=== PATIENT | female | born 1945 | race Caucasian/White ===

== ENCOUNTER 2019-10-04 12:07 | Inpatient (IN) | payer MEDICARE, MEDICAID, SELFPAY ==
--- NOTE | ~2019-10-04 | XR_ITS ---
EXAMINATION: XR knee RT min 4V DATE: 10/04/2019 14:03 INDICATION: Right knee pain TECHNIQUE: Anteroposterior, oblique and crosstable lateral views of the right knee were obtained COMPARISON: None. FINDINGS: Alignment is normal. No fracture. No joint effusion/layering lipohemarthrosis. Soft tissues are unre markable. IMPRESSION: 1. No right knee joint effusion or osseous abnormality. Reviewed, dictated and finalized at location A. ECTOR ROUGH CASTINGS
--- NOTE | ~2019-10-04 | CT_ITS ---
EXAMINATION: CT chest wo con EXAM DATE: 10/05/2019 12:21 INDICATION: Abnormal chest x-ray. TECHNIQUE: Spiral CT of the chest without contrast. Axial, coronal and sagittal images were reviewe d. Coronal maximum intensity pixel images of chest reviewed. The dose-length product (DLP) for this examination was 1188.91 mGy-cm. The exposure was tailored according to patient size (auto mA exposu re control), and iterative reconstruction (ASIR) was used as additional dose reduction technique. Cor relation is made to chest x-ray from 10/04/2019. FINDINGS: There is moderate emphysema. Right upper lobe anterior segmental collapse extending to the pleura, with soft tissue density appearing to extend through the thoracic wall, involving the pector celestina musculature. This is causing ipsilateral mediastinal shift. There is chronic appearing periostea l reaction along right third rib anteriorly, and there is a fracture of the right fourth rib, adjacen t to the airspace disease. Differential diagnosis includes malignancy, sequela from prior trauma with scarring, scar tissue. Please clinically correlate. Consider PET/CT for further evaluation. Small region of lingular atelectasis. There are no pleural or pericardial effusions. Tracheobronchi al tree is patent. There is no mediastinal, hilar or axillary lymphadenopathy. There is no pneumo thorax. Heart normal in size. There is moderate coronary arterial calcification, arterial scleros is. Upper abdomen is unremarkable. There is moderate thoracic spondylosis without osteoblastic or osteolytic lesions identified. IMPRESSION: 1. Wedge-shaped right upper lobe anterior segmental collapse, volume loss with soft tissue extending through the right anterior thoracic wall, differential diagnosis including malignancy, fibrous tumor , atelectasis and scar tissue. Recommend PET/CT for further evaluation. 2. Moderate emphysema. Reviewed, dictated and finalized at location A. BALER IMPRESSION: 1. Wedge-shaped right upper lobe anterior segmental collapse, volume loss with soft tissue extending through the right anterior thoracic wall, differential d iagnosis including malignancy, fibrous tumor, atelectasis and scar tissue. Tu mmend PET/CT for further evaluation. 2. Moderate emphysema.
--- NOTE | ~2019-10-04 | XR_ITS ---
EXAMINATION: XR chest 2V DATE: 10/04/2019 14:03 INDICATION: COPD. Weakness. TECHNIQUE: frontal and lateral views of the chest were obtained. COMPARISON: None FINDINGS: Approximately mild elevation of the left hemidiaphragm. Asymmetric apparent lucency at the left mid a nd upper lung zone which could be related to given history of COPD, sequela of prior partial pneumone ctomy given the volume loss in the left hemithorax with elevation of the left hemidiaphragm and/or ar tifact of what appears be a breast implant projecting over the contralateral right lung. 2-[address] triangular nodule with spiculated margins projecting over the right midlung zone on the frontal p rojection. On the lateral projection this has a more bandlike appearance which would favor discoid at electasis/scarring. Mild atelectasis/scarring at the lingula along side a small left paracardial fat pad. No pleural effusion or pneumothorax. Heart size is normal. Atherosclerotic aorta. Thoracic kypho sis, mild dextrocurvature and moderate spondylosis. IMPRESSION: 1. Bandlike opacity with more spiculated nodular appearance on the frontal projection most likely ate lectasis/scarring but differential would include malignancy and would recommend contrast-enhanced radha st CT for further evaluation. Reviewed, dictated and finalized at location A. DENTIAL SALES REPRESENTATIVE IMPRESSION: 1. Bandlike opacity with more spiculated nodular appearance on the frontal proj ection most likely atelectasis/scarring but differential would include malignan cy and would recommend contrast-enhanced chest CT for further evaluation.
--- NOTE | ~2019-10-04 | CT_ITS ---
EXAMINATION: CT brain wo con DATE: 10/04/2019 13:48 INDICATION: Right leg weakness. Fall. TECHNIQUE: Computed tomography (CT) of the head was performed without intravenous contrast. The mA wa s adjusted according to patient size. Iterative reconstruction technique was employed. The dose-lengt h product was 605.33 mGy-cm. COMPARISON: None FINDINGS: There are scattered areas of low attenuation in the cerebral white matter. There is an embo lization coil mass in the suprasellar cistern. There are old infarcts in the right parietal and occip ital lobes. There are scattered areas of low attenuation in the cerebral white matter. The orbits are normal. The paranasal sinuses are clear. The mastoid air cells are normal. IMPRESSION: 1. Old infarcts in the right parietal and occipital lobes. 2. Moderate nonspecific cerebral white matter disease, which likely represents chronic small vessel i schemic disease. Reviewed, dictated and finalized at location B. TORIAL SUPERVISOR IMPRESSION: 1. Old infarcts in the right parietal and occipital lobes. 2. Moderate nonspecific cerebral white matter disease, which likely represents chronic small vessel ischemic disease.
--- NOTE | ~2019-10-04 | XR_ITS ---
EXAMINATION: XR hip RT 2V w AP pelvis DATE: 10/04/2019 14:03 INDICATION: Generalized right hip pain post fall TECHNIQUE: Anteroposterior view of the pelvis and anteroposterior, frog leg and cross-table lateral v iews of the right hip were obtained. COMPARISON: None. FINDINGS: Bone alignment is normal. No fracture or suspected avascular necrosis. Bilateral hip joint spaces are normal. Mild bilateral sacroiliac osteoarthritis. Scattered atherosclerotic calcination cases and fi bulas. Surgical clips in the pelvis suggestive of bilateral pelvic lymph node dissections. IMPRESSION: 1. No acute osseous abnormality. Reviewed, dictated and finalized at location A. LE MANAGER
[2019-10-04 12:09] VITALS: BP 137/115; PULSE 86; RESP 20; TEMP 36.5; O2SAT 98
[2019-10-04 12:15] VITALS: PULSE 86
--- NOTE | 2019-10-04 12:54 | ECG_ITS ---
Measurements Intervals [place] Rate: 85 P: 40 AR: 211 QRS: 47 QRSD: 88 T: 34 QT: 341 QTc: 406 Interpretive Statements SINUS RHYTHM WITH FIRST DEGREE AV BLOCK ABNORMAL ECG Electronically Signed On 10-04-2019 12:58:53 CERTIFIED MEDICATION AIDE by Brandt Johnson D.O.
--- NOTE | 2019-10-04 13:12 | ED.WEAKNESS ---
HPI - Weakness General Chief complaint: Weakness Stated complaint: WEAKNESS Time Seen by Provider: 10/04/19 12:59 Source: patient and family Mode of arrival: EMS Limitations: no limitations History of Present Illness HPI Narrative: The pt is a 74 y/o female who presents to the ED, via EMS, c/o RLE weakness. The pt presents from assisted living. She notes that she walks without a walker typically, and has been walking over the past couple of days. Pt states that her RLE is chronically weak due to a past CVA. She states that for the past few months, her RLE weakness has gradually worsened. Her and her family state that she has had frequent falls recently, including one yesterday and today. Pt's family states that she fell today while trying to transfer to her couch from her wheelchair. The pt reports chronic SOB with exertion, chronic RLE pain, VELOZ, and some nausea per pt's family. She denies LLE pain, CP, cough, fever, vomiting, diarrhea, loss of appetite, ABD pain, and head injury. She states that she has a PMHx of COPD, and notes that she is on oxygen for sleep apnea. Her family states that her saturation runs between 89 and 91%. Pt notes that she last saw her PCP one week ago; she states that her new PCP is Mary Baker NP. She also notes that she saw Dr. Campuzano two days ago. Pt has a Fuller catheter, and notes that it was changed earlier this week. Complaint: focal weakness (RLE) Onset (ago): year(s) (Chronic, but has worsened gradually over the past 3 months) Duration: constant and progressively worsening Location: RLE Associated symptoms: headaches, nausea/vomiting (Nausea per pt's family), shortness of breath (Chronic, with exertion) and other (RLE pain (Chronic), frequent falls) Related Data Home Medications Medication Instructions Recorded Confirmed acetaminophen 650 mg PO Q6H PRN 10/04/19 10/04/19 albuterol sulfate 2 puff INHALATION QID PRN 10/04/19 10/04/19 albuterol sulfate 5 mg INHALATION Q6H PRN 10/04/19 10/04/19 amlodipine 2.5 mg PO DAILY 10/04/19 10/04/19 aspirin 325 mg PO DAILY 10/04/19 10/04/19 budesonide-formoterol 2 puff INHALATION Q12H 10/04/19 10/04/19 buspirone 10 mg PO HS 10/04/19 10/04/19 docusate sodium [Colace] 100 mg PO BID 10/04/19 10/04/19 furosemide [Lasix] 20 mg PO BID 10/04/19 10/04/19 latanoprost 1 drp OPHTHALMIC (EYE) QPM 10/04/19 10/04/19 melatonin 10 mg PO HS 10/04/19 10/04/19 metoprolol tartrate 25 mg PO BID 10/04/19 10/04/19 polyethylene glycol 3350 [Miralax] 17 g PO DAILY 10/04/19 10/04/19 potassium chloride 40 meq PO DAILY 10/04/19 10/04/19 rosuvastatin 20 mg PO DAILY 10/04/19 10/04/19 venlafaxine 150 mg PO DAILY 10/04/19 10/04/19 Allergies Allergy/AdvReac Type Severity Reaction Status Date / Time clonidine Allergy Intermediate Dizziness Verified 10/04/19 12:25 sertraline Allergy Intermediate Unknown Verified 10/04/19 12:25 topiramate Allergy Intermediate Confusion Verified 10/04/19 12:25 lorazepam AdvReac Intermediate Confusion Verified 10/04/19 12:25 Contrast Media Allergy Severe Hives Uncoded 10/04/19 12:25 Review of Systems Review of Systems: All systems reviewed & are unremarkable except as noted in HPI and below Constitutional: Constitutional: Denies fever(s) and Denies poor appetite (Loss of appetite) Cardiovascular: Cardiovascular: Denies chest pain Respiratory: Respiratory: Denies cough and Reports dyspnea (Chronic, with exertion) Gastrointestinal: Gastrointestinal: Denies abdominal pain, Denies diarrhea, Reports nausea (Per pt's family) and Denies vomiting Musculoskeletal: Musculoskeletal: Reports other (Reports: Chronic RLE pain; Denies: LLE pain) Neurologic: Reports frequent falls, Reports headache(s), Reports weakness (RLE, chronic but worsening over last 3 months) and Denies other (Head injury) [facility] Past Medical History Medical History (Updated 10/05/19 @ 00:28 by Susana Stovall MD) Adenocarcinoma Ovary, breast Anxiety Arthritis Asthma Brain aneurysm
--- NOTE | 2019-10-04 13:36 | PCRCNOTE ---
ABG ORDERED; PT. IS IN C.T. AND XRAY. CHARGE NURSE TO CALL WHEN PT. RETURNS SO ABG CAN BE DRAWN
[2019-10-04 14:28] LABS: Alveolar/Arterial O2 Gradient 35.1 mmHg; Base Excess ABG 4.3 mEq/l (+/-2.0); Carboxyhemoglobin 1.1 % THb (0-2.0); Fractional Inspired Oxygen 21 %; HCO3 ABG 29.8 mEq/l (22.0-26.0); Methemoglobin ABG 0.2 %THb (0-1.5); Oxygen Content ABG 17.3 %vol (16.0-22.0); Oxygen Saturation ABG 89.9 % (95.0-100.0); Oxyhemoglobin 89.1 % THb (90.0-100.0); PCO2 ABG 47.9 mmHg (35.0-45.0); PO2 ABG 57.3 mmHg (80.0-100.0); PO2 FiO2 Ratio Arterial Blood 2.73 %; Reduced Hemoglobin 9.6 %THb (0-5.0); Site Drawn LEFT BRACHIAL; Total Hemoglobin 13.8 g/dL (12.0-18.0); pH ABG 7.412 (7.350-7.450)
[2019-10-04 14:29] LABS: Device ROOM AIR
[2019-10-04 15:22] LABS: Alanine Aminotransferase 14 U/L (4-35); Alkaline Phosphatase 87 U/L (38-126); Aspartate Amino Transferase 21 U/L (14-36); Bilirubin,Total 0.4 mg/dL (0.2-1.3); Blood Urea Nitrogen 23 mg/dL (7-17); Calcium 8.8 mg/dL (8.4-10.2); Carbon Dioxide 31 mmol/L (22-30); Chloride 98 mmol/L (98-107); Estimated Glomerular Filt Rate > 60; Glucose 115 mg/dL (65-105); Magnesium 2.4 mg/dL (1.6-2.3); Potassium 4.2 mmol/L (3.4-5.0); Sodium 139 mmol/L (137-145)
[2019-10-04 15:34] LABS: Troponin I < 0.012 ng/mL (0.000-0.034)
[2019-10-04 15:55] LABS: Basophils Absolute Auto 0.1 K/mm3 (0.0-0.1); Basophils Percent Auto 0.8 % (0.2-1.2); Eosinophils Absolute Auto 0.2 K/mm3 (0-0.3); Eosinophils Percent Auto 1.7 % (0-4.4); Hematocrit 46.2 % (37.0-47.0); Hemoglobin 14.3 g/dL (12.0-15.0); Immature Granulocyte Absolute 0.02 K/mm3 (0.00-0.031); Immature Granulocyte Percent A 0.2 % (0-0.5); Lymphocytes Absolute Auto 1.42 K/mm3 (0.9-3.2); Lymphocytes Percent Auto 15.5 % (18.3-44.2); Mean Corpuscular Hemoglobin 28.3 pg (26-34); Mean Corpuscular Volume 91.3 fl (80-100); Mean Platelet Volume 9.5 fl (7.4-10.4); Monocytes Absolute Auto 0.8 K/mm3 (0.1-0.6); Neutrophils Absolute Auto 6.7 K/mm3 (1.3-6.7); Neutrophils Percent Auto 72.8 % (45.5-73.1); Platelet Count Result 218 k/mm3 (150-375); Red Blood Count 5.06 M/mm3 (4.2-5.4); White Blood Count 9.2 K/mm3 (4.5-10.0)
[2019-10-04 16:22] LABS: Add Urine Microscopic? YES; Appearance Urine Cloudy (Clear); Bacteria Urine Trace /hpf; Bilirubin Urine Negative (Negative); Blood Urine Negative (Negative); Color Urine Yellow (Yellow); Glucose Urine UA Negative (Negative); Ketones Urine Negative (Negative); Leukocyte Esterase Ur Negative LEU/UL (Negative); Mucus Urine Few /lpf; Nitrate Urine Negative (Negative); Protein Urine Negative (Negative); Specific Grav Ur 1.016 (1.001-1.035); Squamous Epithelial Cell Urine Rare /hpf (Few); Urobilinogen Urine Negative mg/dL (<2.0); WBC Urine 0-3 /hpf
[2019-10-04 17:13] LABS: Partial Thromboplastin Time 25.9 SECONDS (22.3-36.8); Prothrombin Time 12.6 Seconds (11.1-14.7)
[2019-10-04 17:48] VITALS: BP 137/76; PULSE 92; RESP 20; O2SAT 93
--- NOTE | 2019-10-04 17:58 | PC.NURSE ---
This patient, Kimberlee Bullock, was admitted to 3 [facility] Surg Room 324-01 on 10/04/2019 @ 1800. Patient/family oriented to hospital policies and general routines including ID bracelet, bed and alarms, visiting hours, pain management, procedures, bathroom and other care routines, personal items, smoking policy, room service/diet, and visiting hours. Valuables list has been completed. Information on how to activate the Rapid Response Team has been discussed. Patient/Family are encouraged to report perceived risks to care and to ask questions if they do not understand what they are told or what they should do.
[2019-10-04 18:58] VITALS: BP 139/62; PULSE 88; RESP 16; TEMP 36.7; O2SAT 90
[2019-10-04 21:35] VITALS: BP 140/72; PULSE 100; RESP 18; TEMP 36.4; O2SAT 99
--- NOTE | 2019-10-04 22:15 | PC.NURSE ---
Patient has chronic jackson for the past few months. Asked patient if she knew when it was changed last, and she thinks that it was earlier this week, but she cannot recall. There is no sticker or date anywhere on the device, or recorded in the chart. I called the assisted living facility at [phone], and was told that they are not sure when it was changed and to call back when a nurse is available to speak to. I have put an approximate date and time down for documentation of the jackson, and will change it as more information becomes available.
[2019-10-05] VITALS (13 sets, daily range): BP systolic 122–141; BP diastolic 58–72; PULSE 73–111; RESP 16; TEMP 36.3–36.6; O2SAT 86–100
[2019-10-05] MEDS: ACETAMINOPHEN 325 MG TABLET 650 MG PO (03:41)
[2019-10-05] MEDS: ASPIRIN 325 MG TABLET PO (08:33)
[2019-10-05] MEDS: AMLODIPINE BESYLATE 2.5 MG TABLET PO (08:33)
[2019-10-05] MEDS: VENLAFAXINE HCL XR 75 MG CAP.ER.24H 150 MG PO (08:33)
[2019-10-05] MEDS: DOCUSATE SODIUM 100 MG CAPSULE PO ×2 (08:33→17:33)
[2019-10-05] MEDS: polyethylene glycoL 3350 17 GM POWD.PACK PO (08:33)
[2019-10-05] MEDS: METOPROLOL TARTRATE 25 MG TABLET PO ×2 (08:34→20:48)
[2019-10-05 10:10] LABS: Blood Urea Nitrogen 21 mg/dL (7-17); Calcium 8.7 mg/dL (8.4-10.2); Carbon Dioxide 31 mmol/L (22-30); Chloride 96 mmol/L (98-107); Estimated Glomerular Filt Rate > 60; Glucose 181 mg/dL (65-105); Potassium 3.8 mmol/L (3.4-5.0); Sodium 135 mmol/L (137-145)
[2019-10-05 10:11] LABS: Hematocrit 40.1 % (37.0-47.0); Hemoglobin 12.2 g/dL (12.0-15.0); Mean Corpuscular HGB Conc 30.4 g/dl (32-36); Mean Corpuscular Hemoglobin 27.9 pg (26-34); Mean Corpuscular Volume 91.8 fl (80-100); Mean Platelet Volume 9.3 fl (7.4-10.4); Platelet Count Result 198 k/mm3 (150-375); Red Blood Count 4.37 M/mm3 (4.2-5.4); Red Cell Distribution Width 14.1 % (11.5-14.5); White Blood Count 7.4 K/mm3 (4.5-10.0)
--- NOTE | 2019-10-05 16:57 | PM.IMPN ---
Progress Note: A&P Assessment and Plan (1) Weakness: Code(s): R53.1 - Weakness Status: Acute Assessment and Plan: 10/05/19 16:57 patient is 74-year-old female with history of CVA in the past resulting in the right upper and lower extremity weakness and patient had a stroke several years ago patient states the on and off right-sided weakness gets worse when she is tired fatigue and specially when she have a bladder infection, patient had been falling recently due to her weakness in the right lower extremities and patient was brought to emergency department for further evaluation, patient suspect the patient her symptoms due to the bladder infection she is having, however urine collected in the emergency department does not show any sign of pyuria, see denies any abdominal pain nausea or vomiting fever or chills her white counts are normal, chest x-ray showed possible scarring or malignancy, a CT scan of the chest is ordered without contrast will follow-up, patient states see has a scarring on her chest which appears on the x-ray as malignancy. (2) Frequent falls: Code(s): R29.6 - Repeated falls Status: Acute Assessment and Plan: No patient clinically sounds is benign will have PT OT evaluate the patient Subjective Date/time seen: 10/05/19 16:57 patient is 74-year-old female with history of CVA in the past resulting in the right upper and lower extremity weakness and patient had a stroke several years ago patient states the on and off right-sided weakness gets worse when she is tired fatigue and specially when she have a bladder infection, patient had been falling recently due to her weakness in the right lower extremities and patient was brought to emergency department for further evaluation, patient suspect the patient her symptoms due to the bladder infection she is having, however urine collected in the emergency department does not show any sign of pyuria, see denies any abdominal pain nausea or vomiting fever or chills her white counts are normal, chest x-ray showed possible scarring or malignancy, a CT scan of the chest is ordered without contrast will follow-up, patient states see has a scarring on her chest which appears on the x-ray as malignancy. Review of Systems Review of Systems: All systems reviewed & are unremarkable except as noted in HPI and below Exam Narrative: Exam Narrative: Patient elderly moderately obese Const: General: comfortable and no acute distress HENMT: General nose exam: Normal nares present Mouth: Yes moist mucous membranes Eyes: General: appearance normal, both eyes and all related structures Sclera: sclerae normal Neck: Neck: supple Resp: Effort & Inspection: normal respiratory effort Auscultation: clear to auscultation bilaterally Cardio: Rate: regular rate Rhythm: regular rhythm GI: Auscultation: normal bowel sounds Skin: General skin exam: normal color and no rashes or lesions noted Neuro: Speech: normal speech Sensory Exam: normal sensation Other: Bilateral lower and upper extremities power and strength a symmetrical and 5/5 age dependent Extrem: General: normal to inspection Psych: Affect: Anxious affect present Objective Data Vital Signs Vital Signs: Vital Signs - 24 hr 10/04/19 17:48 10/04/19 18:58 10/04/19 21:35 Temperature 98.1 F 97.6 F Pulse Rate 92 88 100 Respiratory Rate 20 16 18 Blood Pressure 137/76 139/62 140/72 Pulse Oximetry 93 90 99 10/05/19 00:00 10/05/19 04:05 10/05/19 06:00 Temperature 97.4 F L Pulse Rate 111 H 97 95 Respiratory Rate 16 Blood Pressure 141/72 H Pulse Oximetry 100 10/05/19 08:00 10/05/19 08:34 10/05/19 12:00 Temperature Pulse Rate 92 99 73 Respiratory Rate Blood Pressure Pulse Oximetry 10/05/19 14:00 10/05/19 16:00 Temperature 97.8 F Pulse Rate 84 91 Respiratory Rate 16 Blood Pressure 128/58 L Pulse Oximetry 90 Intake/Output Intake/Output: Intake & O
[2019-10-05] MEDS: LATANOPROST 0.005% OP SOLN 2.5 ML BTL 1 DROP EACH EYE (17:33)
[2019-10-05] MEDS: busPIRone HCL 10 MG TABLET PO (20:48)
[2019-10-05] MEDS: MELATONIN 5 MG TABLET 10 MG PO (20:49)
[2019-10-06] VITALS (13 sets, daily range): BP systolic 122–148; BP diastolic 58–82; PULSE 78–93; RESP 16–18; TEMP 36.2–36.9; O2SAT 93–97
[2019-10-06 06:15] LABS: Hematocrit 38.5 % (37.0-47.0); Hemoglobin 11.7 g/dL (12.0-15.0); Mean Corpuscular HGB Conc 30.4 g/dl (32-36); Mean Corpuscular Hemoglobin 27.9 pg (26-34); Mean Corpuscular Volume 91.7 fl (80-100); Mean Platelet Volume 9.3 fl (7.4-10.4); Platelet Count Result 197 k/mm3 (150-375); Red Cell Distribution Width 14.1 % (11.5-14.5); White Blood Count 6.3 K/mm3 (4.5-10.0)
[2019-10-06 06:43] LABS: Blood Urea Nitrogen 20 mg/dL (7-17); Calcium 8.8 mg/dL (8.4-10.2); Carbon Dioxide 30 mmol/L (22-30); Chloride 100 mmol/L (98-107); Estimated Glomerular Filt Rate > 60; Glucose 123 mg/dL (65-105); Sodium 136 mmol/L (137-145)
[2019-10-06] MEDS: VENLAFAXINE HCL XR 75 MG CAP.ER.24H 150 MG PO (08:38)
[2019-10-06] MEDS: AMLODIPINE BESYLATE 2.5 MG TABLET PO (08:38)
[2019-10-06] MEDS: ASPIRIN 325 MG TABLET PO (08:38)
[2019-10-06] MEDS: polyethylene glycoL 3350 17 GM POWD.PACK PO (08:38)
[2019-10-06] MEDS: DOCUSATE SODIUM 100 MG CAPSULE PO ×2 (08:38→17:17)
[2019-10-06] MEDS: METOPROLOL TARTRATE 25 MG TABLET PO ×2 (08:38→21:06)
--- NOTE | 2019-10-06 14:01 | PM.IMPN ---
Progress Note: A&P Assessment and Plan (1) Weakness: Code(s): R53.1 - Weakness Status: Acute Assessment and Plan: 10/06/19 14:01patient is 74-year-old female with history of CVA in the past resulting in the right upper and lower extremity weakness and patient had a stroke several years ago patient states the on and off right-sided weakness gets worse when she is tired fatigue and specially when she have a bladder infection, patient had been falling recently due to her weakness in the right lower extremities and patient was brought to emergency department for further evaluation, patient suspect the patient her symptoms due to the bladder infection she is having, however urine collected in the emergency department does not show any sign of pyuria, see denies any abdominal pain nausea or vomiting fever or chills her white counts are normal, chest x-ray showed possible scarring or malignancy, a CT scan of the chest is ordered without contrast will follow-up, patient states see has a scarring on her chest which appears on the x-ray as malignancy. Patient had ct scan of the chest it does appear as old scaring as patient stated, today patient stats her right lower extremity is better and she is able flex and extend and did work with the PT/OT. Patient will be re-evaluated by the PT OT patient will benefit going home with home health (2) Frequent falls: Code(s): R29.6 - Repeated falls Status: Acute Assessment and Plan: No patient clinically sounds is benign will have PT OT evaluate the patient Subjective Date/time seen: 10/06/19 14:01patient is 74-year-old female with history of CVA in the past resulting in the right upper and lower extremity weakness and patient had a stroke several years ago patient states the on and off right-sided weakness gets worse when she is tired fatigue and specially when she have a bladder infection, patient had been falling recently due to her weakness in the right lower extremities and patient was brought to emergency department for further evaluation, patient suspect the patient her symptoms due to the bladder infection she is having, however urine collected in the emergency department does not show any sign of pyuria, see denies any abdominal pain nausea or vomiting fever or chills her white counts are normal, chest x-ray showed possible scarring or malignancy, a CT scan of the chest is ordered without contrast will follow-up, patient states see has a scarring on her chest which appears on the x-ray as malignancy. Patient had ct scan of the chest it does appear as old scaring as patient stated, today patient stats her right lower extremity is better and she is able flex and extend and did work with the PT/OT. Review of Systems Review of Systems: All systems reviewed & are unremarkable except as noted in HPI and below Exam Narrative: Exam Narrative: Patient elderly moderately obese Const: General: comfortable and no acute distress HENMT: General nose exam: Normal nares present Mouth: Yes moist mucous membranes Eyes: General: appearance normal, both eyes and all related structures Sclera: sclerae normal Neck: Neck: supple Resp: Effort & Inspection: normal respiratory effort Auscultation: clear to auscultation bilaterally Cardio: Rate: regular rate Rhythm: regular rhythm GI: Auscultation: normal bowel sounds Skin: General skin exam: normal color and no rashes or lesions noted Neuro: Speech: normal speech Sensory Exam: normal sensation Other: Bilateral lower and upper extremities power and strength a symmetrical and 5/5 age dependent Extrem: General: normal to inspection Psych: Affect: Anxious affect present Objective Data Vital Signs Vital Signs: Vital Signs - 24 hr 10/05/19 16:00 10/05/19 20:00 10/05/19 20:48 Temperature Pulse Rate 91 102 H 94 Respiratory Rate Blood Pressure Pulse Oximetry 10/05/19 21:13 10/05/19 22:09 10/05/19 22:57 Mobile
[2019-10-06] MEDS: LATANOPROST 0.005% OP SOLN 2.5 ML BTL 1 DROP EACH EYE (17:17)
[2019-10-06] MEDS: MELATONIN 5 MG TABLET 10 MG PO (21:05)
[2019-10-06] MEDS: busPIRone HCL 10 MG TABLET PO (21:06)
[2019-10-07] VITALS (8 sets, daily range): BP systolic 125–138; BP diastolic 63–73; PULSE 72–94; RESP 16–18; TEMP 36.5–36.9; O2SAT 88–98
[2019-10-07] MEDS: ACETAMINOPHEN 325 MG TABLET 650 MG PO ×2 (00:06→22:01)
[2019-10-07 06:29] LABS: Hematocrit 37.1 % (37.0-47.0); Hemoglobin 11.5 g/dL (12.0-15.0); Mean Corpuscular Volume 90.3 fl (80-100); Mean Platelet Volume 9.1 fl (7.4-10.4); Platelet Count Result 198 k/mm3 (150-375); Red Blood Count 4.11 M/mm3 (4.2-5.4); White Blood Count 6.5 K/mm3 (4.5-10.0)
[2019-10-07 06:40] LABS: Blood Urea Nitrogen 23 mg/dL (7-17); Calcium 8.9 mg/dL (8.4-10.2); Carbon Dioxide 32 mmol/L (22-30); Chloride 101 mmol/L (98-107); Estimated Glomerular Filt Rate > 60; Glucose 122 mg/dL (65-105); Potassium 3.9 mmol/L (3.4-5.0); Sodium 140 mmol/L (137-145)
--- NOTE | 2019-10-07 06:48 | HP_ITS ---
DATE OF SERVICE: 10/05/2019 TIME: 0515. CHIEF COMPLAINT: Worsening weakness. HISTORY OF PRESENT ILLNESS: The patient is a pleasant 74-year-old female with a past medical history of chronic right-sided weakness, lung cancer status post radiation therapy, COPD with nighttime oxygen use, and chronic gait instability, who presented to the hospital via EMS from [facility] due to a fall due to weakness. Source of information is ER records and past medical records as well as patient report. The patient is only a fair historian. The patient usually ambulates with a walker, but has been having difficulty walking over the last couple of days. She has fallen twice in recent days. She has chronic right lower extremity weakness due to a prior CVA and intracranial aneurysm was coiled in 2006. Gradually over the last few months, her right lower extremity weakness has worsened. The patient was trying to transfer from the couch to a wheelchair on the day of admission when she fell. She denies any injury with the fall. She thinks that she is more weak due to a recent bout of flu. She denies any increased shortness of breath from baseline, but does have chronic shortness of breath with exertion. She also has chronic right lower extremity pain that is unchanged. The family had reported that the patient had been having some headache and nausea, but the patient denies any nausea at the time of my evaluation and reports that her appetite has been good. She does have intermittent episodes of diarrhea and constipation that she correlates to a history of diverticulosis. The patient also has a history of obstructive sleep apnea for which she uses nighttime oxygen, but does also use the oxygen as needed during the day. She has chronic urinary retention for which she was evaluated at [place] with urodynamic studies and was seen by Urology during hospitalization in January 2019, for which patient was to follow up with Urology locally. The plan was for the patient to have a Fuller in indefinitely as intermittent self-catheterization was unlikely with the patient. The patient's catheter is scheduled to be changed monthly and was just changed last week. She denies any fevers or chills. She does admit that she has had progressive decline in her memory over recent months, but is currently alert and oriented to person, place, time, and situation, but was unable to name the current president. Given her report of lower extremity pain, the patient had an x-ray of the pelvis, which demonstrated no osseous abnormality, a knee x-ray which demonstrated no right joint knee effusion or osseous abnormality, and given her fall, a CT scan was performed which demonstrated old infarcts in the right parietal and occipital lobes with moderate nonspecific white matter disease, likely representing chronic small vessel ischemic disease. The patient is very frustrated because she states she cannot get to see the urologist as outpatient because she is dependent upon her children to transport her for doctors' visits. REVIEW OF SYSTEMS: Except as documented, all systems were reviewed and are negative, however, the patient is only a fair historian and admits to some mild cognitive impairment. PAST MEDICAL HISTORY: 1. History of CVA with old infarcts noted in the right parietal and occipital lobes on imaging. 2. Fibromyalgia diagnosed in November 2016. 3. Intracranial aneurysm, status post coiling in 2006. 4. Lung cancer, status post radiation therapy. 5. COPD with recent cessation of tobacco use. 6. Obstructive sleep apnea, on supplemental oxygen at night. 7. Chronic urinary retention with chronic indwelling Fuller catheter as discussed above. 8. History of breast cancer, status post mastectomy and lymph node biopsies with a limb alert on the ri
[2019-10-07] MEDS: ASPIRIN 325 MG TABLET PO (08:33)
[2019-10-07] MEDS: AMLODIPINE BESYLATE 2.5 MG TABLET PO (08:34)
[2019-10-07] MEDS: polyethylene glycoL 3350 17 GM POWD.PACK PO (08:34)
[2019-10-07] MEDS: VENLAFAXINE HCL XR 75 MG CAP.ER.24H 150 MG PO (08:34)
[2019-10-07] MEDS: METOPROLOL TARTRATE 25 MG TABLET PO ×2 (08:34→20:45)
[2019-10-07] MEDS: DOCUSATE SODIUM 100 MG CAPSULE PO ×2 (08:34→18:25)
--- NOTE | 2019-10-07 15:27 | PM.IMPN ---
Progress Note: A&P Assessment and Plan (1) Weakness: Code(s): R53.1 - Weakness Status: Acute Assessment and Plan: 10/07/19 15:27 patient is 74-year-old female with history of CVA in the past resulting in the right upper and lower extremity weakness and patient had a stroke several years ago patient states the on and off right-sided weakness gets worse when she is tired fatigue and specially when she have a bladder infection, patient had been falling recently due to her weakness in the right lower extremities and patient was brought to emergency department for further evaluation, patient suspect the patient her symptoms due to the bladder infection she is having, however urine collected in the emergency department does not show any sign of pyuria, see denies any abdominal pain nausea or vomiting fever or chills her white counts are normal, chest x-ray showed possible scarring or malignancy, a CT scan of the chest is ordered without contrast will follow-up, patient states see has a scarring on her chest which appears on the x-ray as malignancy. Patient had ct scan of the chest it does appear as old scaring as patient stated, today patient stats her right lower extremity patient is more painful and has difficulty with ambulation, and difficulty with flexion and extension of right lower extremity, Patient will be re-evaluated by the PT OT patient will benefit going acute rehab before going (2) Frequent falls: Code(s): R29.6 - Repeated falls Status: Acute Assessment and Plan: No patient clinically sounds is benign will have PT OT evaluate the patient Subjective Date/time seen: 10/07/19 15:27 patient is 74-year-old female with history of CVA in the past resulting in the right upper and lower extremity weakness and patient had a stroke several years ago patient states the on and off right-sided weakness gets worse when she is tired fatigue and specially when she have a bladder infection, patient had been falling recently due to her weakness in the right lower extremities and patient was brought to emergency department for further evaluation, patient suspect the patient her symptoms due to the bladder infection she is having, however urine collected in the emergency department does not show any sign of pyuria, see denies any abdominal pain nausea or vomiting fever or chills her white counts are normal, chest x-ray showed possible scarring or malignancy, a CT scan of the chest is ordered without contrast will follow-up, patient states see has a scarring on her chest which appears on the x-ray as malignancy. Patient had ct scan of the chest it does appear as old scaring as patient stated, today patient stats her right lower extremity patient is more painful and has difficulty with ambulation, and difficulty with flexion and extension of right lower extremity, Patient will be re-evaluated by the PT OT patient will benefit going acute rehab before going Review of Systems Review of Systems: All systems reviewed & are unremarkable except as noted in HPI and below Exam Narrative: Exam Narrative: Patient elderly moderately obese Const: General: comfortable and no acute distress HENMT: General nose exam: Normal nares present Mouth: Yes moist mucous membranes Eyes: General: appearance normal, both eyes and all related structures Sclera: sclerae normal Neck: Neck: supple Resp: Effort & Inspection: normal respiratory effort Auscultation: clear to auscultation bilaterally Cardio: Rate: regular rate Rhythm: regular rhythm GI: Auscultation: normal bowel sounds Skin: General skin exam: normal color and no rashes or lesions noted Neuro: Speech: normal speech Sensory Exam: normal sensation Other: patient with weakness in right lower extremity compare to left, patient is unable to flex and extend without pain Extrem: General: normal to inspection Psych: Affect: Anxious affect present Objective Data Vital Sig
[2019-10-07] MEDS: LATANOPROST 0.005% OP SOLN 2.5 ML BTL 1 DROP EACH EYE (18:24)
[2019-10-07] MEDS: busPIRone HCL 10 MG TABLET PO (20:44)
[2019-10-07] MEDS: MELATONIN 5 MG TABLET 10 MG PO (20:45)
[2019-10-08 06:00] VITALS: BP 127/62; PULSE 86; RESP 20; TEMP 36.9; O2SAT 95
[2019-10-08 06:05] LABS: Hematocrit 37.5 % (37.0-47.0); Hemoglobin 11.4 g/dL (12.0-15.0); Mean Corpuscular HGB Conc 30.4 g/dl (32-36); Mean Corpuscular Hemoglobin 27.8 pg (26-34); Mean Corpuscular Volume 91.5 fl (80-100); Mean Platelet Volume 9.1 fl (7.4-10.4); Platelet Count Result 205 k/mm3 (150-375); White Blood Count 6.8 K/mm3 (4.5-10.0)
[2019-10-08 06:15] LABS: Blood Urea Nitrogen 24 mg/dL (7-17); Calcium 8.6 mg/dL (8.4-10.2); Carbon Dioxide 33 mmol/L (22-30); Chloride 97 mmol/L (98-107); Estimated Glomerular Filt Rate > 60; Glucose 116 mg/dL (65-105); Sodium 136 mmol/L (137-145)
[2019-10-08] MEDS: VENLAFAXINE HCL XR 75 MG CAP.ER.24H 150 MG PO (08:41)
[2019-10-08 08:42] VITALS: PULSE 80
[2019-10-08] MEDS: ASPIRIN 325 MG TABLET PO (08:42)
[2019-10-08] MEDS: METOPROLOL TARTRATE 25 MG TABLET PO (08:42)
[2019-10-08] MEDS: DOCUSATE SODIUM 100 MG CAPSULE PO ×2 (08:42→18:04)
[2019-10-08] MEDS: AMLODIPINE BESYLATE 2.5 MG TABLET PO (08:42)
[2019-10-08] MEDS: polyethylene glycoL 3350 17 GM POWD.PACK PO (08:43)
[2019-10-08 09:45] VITALS: O2SAT 91
[2019-10-08 15:29] VITALS: BP 118/61; PULSE 63; RESP 16; TEMP 36.3; O2SAT 92
--- NOTE | 2019-10-08 15:50 | PM.DS ---
DS: Diagnosis Admitting Diagnosis Admitting Diagnosis: Weakness Discharge Diagnosis (1) Weakness: Code(s): R53.1 - Weakness Status: Acute Assessment and Plan: Patient is 74-year-old female with history of CVA in the past resulting in the right upper and lower extremity weakness and patient had a stroke several years ago patient states the on and off right-sided weakness gets worse when she is tired fatigue and specially when she have a bladder infection, patient had been falling recently due to her weakness in the right lower extremities and patient was brought to emergency department for further evaluation, patient suspect the patient her symptoms due to the bladder infection she is having, however urine collected in the emergency department does not show any sign of pyuria, a CT scan of the chest is ordered without contrast will follow-up, patient states she has a scarring on her chest.Patient had ct scan of the chest it does appear as old scaring as patient stated, today patient stats her right lower extremity patient is more painful and has difficulty with ambulation, and difficulty with flexion and extension of right lower extremity, Patient will be re-evaluated by the PT OT patient will benefit going acute rehab before going. As per previous notes, pt is discharged to rehab for further help with her r sided weakness, old CVA. CT head shows - Old infarcts in the right parietal and occipital lobes. 2. Moderate nonspecific cerebral white matter disease, which likely represents chronic small vessel ischemic disease. (2) Frequent falls: Code(s): R29.6 - Repeated falls Status: Acute Assessment and Plan: Evaluation warrants rehabilitation and further PT/ OT DS: Summary Time Spent with Patient Time attestation: Total time spent providing and/or coordinating discharge services:38 minutes on day of discharge. Exam Narrative: Exam Narrative: Patient elderly moderately obese Const: General: comfortable and no acute distress HENMT: General nose exam: Normal nares present Mouth: Yes moist mucous membranes Eyes: General: appearance normal, both eyes and all related structures Sclera: sclerae normal Neck: Neck: supple Resp: Effort & Inspection: normal respiratory effort Auscultation: clear to auscultation bilaterally Cardio: Rate: regular rate Rhythm: regular rhythm GI: Auscultation: normal bowel sounds Skin: General skin exam: normal color and no rashes or lesions noted Neuro: Speech: normal speech Sensory Exam: normal sensation Other: patient with weakness in right lower extremity compare to left, patient is unable to flex and extend without pain Extrem: General: normal to inspection Psych: Affect: Anxious affect present DS: Data Data Completed and Pending Labs on day of discharge: Labs from last 24 hours 10/08/19 10/08/19 05:50 05:50 WBC 6.8 RBC 4.10 L Hgb 11.4 L Hct 37.5 MCV 91.5 MCH 27.8 MCHC 30.4 L RDW 14.0 Plt Count 205 MPV 9.1 Sodium 136 L Potassium 4.0 Chloride 97 L Carbon Dioxide 33 H BUN 24 H Creatinine 0.70 Estim Creat Clear Calc Not Reportable Estimated GFR > 60 Glucose 116 H Calcium 8.6 Discharge Plan Discharge Attending physician on discharge: Guadalupe Kwon Discharging Clinician: Guadalupe Kwon Anticipated Discharge Date/Time: 10/08/19 15:48 Patient Disposition: Inpatient Rehab Facility Activity: as tolerated Diet: heart healthy Patient Instructions: Antibiotic Form, Heart Failure (DC), Pain Management Older Adults (DC) Stand Alone Forms: General Discharge Information Follow-up/Referrals: UNKNOWN,DOCTOR [Primary Care Provider] - Discharge Medications: Continued acetaminophen 325 mg Tablet 650 mg PO Q6H PRN (Reason: Fever Or Pain) RF: 0 aspirin 325 mg Tablet 325 mg PO DAILY RF: 0 amlodipine 2.5 mg tablet 2.5 mg PO DAILY RF: 0 buspir
[2019-10-08] MEDS: LATANOPROST 0.005% OP SOLN 2.5 ML BTL 1 DROP EACH EYE (18:04)
== END 2019-10-08 18:23 | DRG 57 ==
LOC: ANHED 16:47 → ANH3MEDSUR 17:15
PROVIDERS: Family Medicine; Admitting Provider Internal Medicine; Emergency Provider General Practice; Visit Provider Family Medicine
DX: I69.351 Hemiplegia and hemiparesis following cerebral infarction affecting right dominant side (principal); M79.7 Fibromyalgia; J44.9 Chronic obstructive pulmonary disease, unspecified; F17.210 Nicotine dependence, cigarettes, uncomplicated; G47.33 Obstructive sleep apnea (adult) (pediatric); K57.90 Diverticulosis of intestine, part unspecified, without perforation or abscess without bleeding; K21.9 Gastro-esophageal reflux disease without esophagitis; Z85.118 Personal history of other malignant neoplasm of bronchus and lung; Z85.3 Personal history of malignant neoplasm of breast; Z85.43 Personal history of malignant neoplasm of ovary; R29.6 Repeated falls
CPT/HCPCS: 36415; 36600; 70450; 71046; 71250; 73502; 73521; 73564; 80048; 80053; 81001; 82375; 82805; 83050; 83735; 84484; 85025; 85027; 85610; 85730; 93005; 94640; 97110; 97116; 97162; 97165; 97530; 97535; 99285; A9270; G0378

== ENCOUNTER 2019-10-08 18:30 | IRF | payer MEDICARE, MEDICAID, SELFPAY ==
[2019-10-08 18:30] VITALS: BP 122/52; PULSE 76; RESP 18; TEMP 36.3; O2SAT 91; BMI 34.7
--- NOTE | 2019-10-08 18:49 | ADMGEN ---
This patient, Kimberlee Bullock, was admitted to [facility] Room 223-02. Patient/family oriented to hospital policies and general routines including ID bracelet, bed and alarms, visiting hours, pain management, procedures, bathroom and other care routines, personal items, smoking policy, room service/diet, and visiting hours. Valuables list has been completed. Information on how to activate the Rapid Response Team has been discussed. Patient/Family are encouraged to report perceived risks to care and to ask questions if they do not understand what they are told or what they should do.
[2019-10-08 21:05] VITALS: PULSE 76
[2019-10-08] MEDS: DOCUSATE SODIUM 100 MG CAPSULE PO (21:05)
[2019-10-08] MEDS: METOPROLOL TARTRATE 25 MG TABLET PO (21:05)
[2019-10-08] MEDS: busPIRone HCL 10 MG TABLET PO (21:06)
[2019-10-08] MEDS: MELATONIN 5 MG TABLET 10 MG PO (21:06)
[2019-10-08] MEDS: FAMOTIDINE 20 MG TABLET PO (21:06)
[2019-10-08 21:30] VITALS: PULSE 73; RESP 18; O2SAT 94
--- NOTE | 2019-10-08 21:50 | ADMGEN ---
This patient, Kimberlee Bullock, was admitted to [facility] Room 223-02. Patient/family oriented to hospital policies and general routines including ID bracelet, bed and alarms, visiting hours, pain management, procedures, bathroom and other care routines, personal items, smoking policy, room service/diet, and visiting hours. Valuables list has been completed. Information on how to activate the Rapid Response Team has been discussed. Patient/Family are encouraged to report perceived risks to care and to ask questions if they do not understand what they are told or what they should do.
[2019-10-08 22:00] VITALS: BP 105/71; PULSE 73; RESP 19; TEMP 36.4; O2SAT 92
[2019-10-09 05:48] VITALS: BP 104/41; PULSE 69; RESP 18; TEMP 36.4; O2SAT 98
[2019-10-09 06:02] LABS: Blood Urea Nitrogen 20 mg/dL (7-17); Calcium 8.9 mg/dL (8.4-10.2); Carbon Dioxide 32 mmol/L (22-30); Chloride 98 mmol/L (98-107); Estimated CRCL calculation 68 ml/min; Estimated Glomerular Filt Rate > 60; Glucose 117 mg/dL (65-105); Potassium 3.9 mmol/L (3.4-5.0); Sodium 136 mmol/L (137-145)
[2019-10-09 06:03] LABS: Basophils Absolute Auto 0.1 K/mm3 (0.0-0.1); Basophils Percent Auto 0.8 % (0.2-1.2); Eosinophils Absolute Auto 0.3 K/mm3 (0-0.3); Eosinophils Percent Auto 4.2 % (0-4.4); Hematocrit 37.7 % (37.0-47.0); Hemoglobin 11.5 g/dL (12.0-15.0); Immature Granulocyte Absolute 0.03 K/mm3 (0.00-0.031); Immature Granulocyte Percent A 0.4 % (0-0.5); Lymphocytes Percent Auto 19.5 % (18.3-44.2); Mean Corpuscular HGB Conc 30.5 g/dl (32-36); Mean Corpuscular Hemoglobin 27.9 pg (26-34); Mean Corpuscular Volume 91.5 fl (80-100); Mean Platelet Volume 9.2 fl (7.4-10.4); Monocytes Absolute Auto 0.7 K/mm3 (0.1-0.6); Monocytes Percent Auto 9.9 % (2.6-8.5); Neutrophils Absolute Auto 4.7 K/mm3 (1.3-6.7); Neutrophils Percent Auto 65.2 % (45.5-73.1); Platelet Count Result 203 k/mm3 (150-375); Red Blood Count 4.12 M/mm3 (4.2-5.4); White Blood Count 7.2 K/mm3 (4.5-10.0)
[2019-10-09] MEDS: DOCUSATE SODIUM 100 MG CAPSULE PO ×2 (09:08→21:29)
[2019-10-09] MEDS: AMLODIPINE BESYLATE 2.5 MG TABLET PO (09:08)
[2019-10-09] MEDS: CHOLECALCIFEROL 1,000 UNIT TABLET 1000 UNITS PO (09:08)
[2019-10-09] MEDS: ASPIRIN 325 MG TABLET PO (09:08)
[2019-10-09] MEDS: FAMOTIDINE 20 MG TABLET PO ×2 (09:08→21:29)
[2019-10-09 09:09] VITALS: PULSE 69
[2019-10-09] MEDS: FUROSEMIDE 20 MG TABLET PO ×2 (09:09→17:39)
[2019-10-09] MEDS: ROSUVASTATIN 10 MG TABLET 20 MG PO (09:09)
[2019-10-09] MEDS: POTASSIUM CHLORIDE 20 MEQ TABLET.ER 40 MEQ PO (09:09)
[2019-10-09] MEDS: LORATADINE 10 MG TABLET PO (09:09)
[2019-10-09] MEDS: TOLTERODINE TARTRATE 2 MG TABLET PO (09:09)
[2019-10-09] MEDS: PANTOPRAZOLE 40 MG TABLET PO (09:09)
[2019-10-09] MEDS: polyethylene glycoL 3350 17 GM POWD.PACK PO (09:09)
[2019-10-09] MEDS: METOPROLOL TARTRATE 25 MG TABLET PO ×2 (09:09→21:31)
[2019-10-09] MEDS: VENLAFAXINE HCL XR 75 MG CAP.ER.24H 150 MG PO (09:10)
[2019-10-09] MEDS: CLONAZEPAM 0.5 MG TAB PO (09:11)
--- NOTE | 2019-10-09 10:30 | WPDREHABHP ---
H&P: HPI History of Present Illness Chief complaint: generalized weakness Narrative: Kimberlee Bullock is a 74 year old female HISTORY OF PRESENT ILLNESS: The patient's primary rehab impairment category is 20 - miscellaneous The etiologic diagnosis is generalized weakness/debility I saw this patient [id number] on October 09, 2019 at 10:30 a.m. The patient is a 74-year-old right-handed woman with history of stroke with residual right-sided weakness who presented to [facility] in October 04, 2019 with progressive weakness, recent multiple falls, and symptoms of bladder infection. Her white counts were normal and chest x-ray showed possible scarring or malignancy, says chest CT revealed which shaped a right upper lobe anterior segmental collapse, volume loss with soft tissue extending through the right anterior thoracic wall, differential diagnosis including malignancy, fibrous tumor, atelectasis, is scar tissue and moderate emphysema. Abnormal chest x-ray with spiculated mass could be due to scarring from prior Radiation therapy for lung cancer or new malignancy. The plan is to continue to assess need for Fuller catheter with bladder training to be addressed. Urology consult recommended. Given her report of lower extremity pain the patient had an x-ray of the pelvis which demonstrated no osseous abnormality, a knee x-ray which demonstrated no right knee joint effusion or osseous abnormality, medical complications and would need for continuous oxygen at 3 liters was only wearing at night for obstructive sleep apnea. The patient also had hyponatremia elevated BUN hyperglycemia urinary retention requiring Fuller catheter and pain. Patient is awake alert oriented x3 the patient was independent with ADLs and ambulated independently with a rolling walker. Physical examination is continue to revealed increased right-sided weakness balance impairment decreased grasp motor control upper trunk instability and decreased safety awareness she will be on aspirin for DVT prophylaxis and also stroke prevention Therapy was initiated at the acute care facility and the patient transferred to us from [facility] on October 08, 2019 FALLS OR SURGERIES: The patient has had major surgeries in the 100 days prior to admission. They had falls in the past year. They had falls with injury in the past year. PAST MEDICAL HISTORY: urinary retention requiring Fuller catheter, malaise and fatigue, frequent falls, anxiety, arthritis, adrenal carcinoma ovary and breast, asthma, brain aneurysm, COPD, CVA with right-sided residual weakness, elbow fracture, fibromyalgia, GERD, hyperlipidemia, hypertension, lung cancer, home O2 oxygen at night, peripheral neuropathy, pneumonia, sleep apnea, toes fractured, ventral hernia, vertigo PAST SURGICAL HISTORY: endovascular coiling for aneurysm, ventral hernia repair, hysterectomy SOCIAL HISTORY: patient lives independently at [facility] in [place]. She is a former smoker with his stop date January 10, 2019, prior to quitting the patient had smoked 1 pack per days since she was a teenager. She has 4 children 3 of which live locally 1 of which lives in [place]. She denies alcohol or illicit use of drugs FAMILY HISTORY: siblings have a history of breast cancer, hypertension and kidney failure. Father mother have history of heart attacks. PRIOR LEVEL OF FUNCTION: Eating was INDEPENDENT Oral Care was INDEPENDENT Toileting Hygiene was INDEPENDENT Shower/Bathing was INDEPENDENT Upper Body Dressing was INDEPENDENT Lower Body Dressing was INDEPENDENT Donning/[place] Footwear was INDEPENDENT Rolling Left and Right was INDEPENDENT Sit to Lying was INDEPENDENT Lying to Sitting was INDEPENDENT Sit to Stand was INDEPENDENT Bed to Chair Transfers was INDEPENDENT Toilet Transfers was INDEPENDENT Walking was INDEPENDENT 150 feet with with Rollator Wheelchair Mobility was NOT APPLICABLE PRIOR TO ADMISSION
[2019-10-09 14:00] VITALS: BP 119/58; PULSE 81; RESP 17; TEMP 36; O2SAT 90
[2019-10-09 14:56] VITALS: BMI 34.7
[2019-10-09] MEDS: LATANOPROST 0.005% OP SOLN 2.5 ML BTL 1 DROP EACH EYE (17:39)
[2019-10-09 21:15] VITALS: PULSE 80; RESP 18; O2SAT 92
[2019-10-09] MEDS: MELATONIN 5 MG TABLET 10 MG PO (21:26)
[2019-10-09] MEDS: busPIRone HCL 10 MG TABLET PO (21:26)
[2019-10-09 21:31] VITALS: PULSE 80
[2019-10-09 22:00] VITALS: BP 142/82; PULSE 88; RESP 19; TEMP 36.4; O2SAT 90
[2019-10-10] VITALS (9 sets, daily range): BP systolic 116–127; BP diastolic 66–98; PULSE 67–116; RESP 18; TEMP 36.1–36.3; O2SAT 93–99
[2019-10-10] MEDS: FAMOTIDINE 20 MG TABLET PO ×2 (08:52→20:18)
[2019-10-10] MEDS: ASPIRIN 325 MG TABLET PO (08:52)
[2019-10-10] MEDS: DOCUSATE SODIUM 100 MG CAPSULE PO ×2 (08:52→20:19)
[2019-10-10] MEDS: FUROSEMIDE 20 MG TABLET PO ×2 (08:52→17:09)
[2019-10-10] MEDS: PANTOPRAZOLE 40 MG TABLET PO (08:52)
[2019-10-10] MEDS: AMLODIPINE BESYLATE 2.5 MG TABLET PO (08:53)
[2019-10-10] MEDS: METOPROLOL TARTRATE 25 MG TABLET PO ×2 (08:54→20:18)
[2019-10-10] MEDS: LORATADINE 10 MG TABLET PO (08:54)
[2019-10-10] MEDS: polyethylene glycoL 3350 17 GM POWD.PACK PO (08:55)
[2019-10-10] MEDS: POTASSIUM CHLORIDE 20 MEQ TABLET.ER 40 MEQ PO (08:55)
[2019-10-10] MEDS: VENLAFAXINE HCL XR 75 MG CAP.ER.24H 150 MG PO (08:56)
[2019-10-10] MEDS: ROSUVASTATIN 10 MG TABLET 20 MG PO (08:56)
[2019-10-10] MEDS: TOLTERODINE TARTRATE 2 MG TABLET PO (08:57)
[2019-10-10] MEDS: CLONAZEPAM 0.5 MG TAB PO (09:02)
[2019-10-10] MEDS: CHOLECALCIFEROL 1,000 UNIT TABLET 1000 UNITS PO (09:03)
--- NOTE | 2019-10-10 12:10 | WPDNEURORHBP ---
Subjective Date/time seen: 10/10/19 12:10 Interval history: patient's overall weakness is improving she does not have any new specific complaints Review of Systems Constitutional: Constitutional: Reports no additional constitutional complaints Eyes: Eyes: Reports no additional eye complaints ENT: Reports system reviewed and no additional complaints, except as documented Cardiovascular: Cardiovascular: Reports no additional cardiovascular complaints Respiratory: Respiratory: Reports no additional respiratory complaints Gastrointestinal: Gastrointestinal: Reports no additional gastrointestinal complaints Genitourinary: Genitourinary: Reports no additional female genitourinary complaints Musculoskeletal: Musculoskeletal: Reports no additional musculoskeletal complaints Integumentary/Breasts: Skin/Breast: Reports system reviewed and no additional complaints, except as docu Neurologic: Reports system reviewed and no additional complaints, except as documented Psychiatric: Psychiatric: Reports no additional psychiatric complaints Functional Status Ambulation Ability Ability to Ambulate 10 Feet: Minimum Assistance X 1 Ambulation Assistive Devices: Walker, Wheeled Transfers Ability Ability to Transfer In/Out of Chair: Minimum Assistance X 1 Exam Const: General: comfortable and no acute distress HENMT: General nose exam: Normal nares present Mouth: Yes moist mucous membranes Eyes: General: appearance normal, both eyes and all related structures Neck: Neck: supple and no JVD Resp: Effort & Inspection: normal respiratory effort Auscultation: clear to auscultation bilaterally Cardio: Rate: regular rate Rhythm: regular rhythm GI: GI Palp: Yes Soft to palpation Auscultation: normal bowel sounds Skin: General skin exam: normal color and no rashes or lesions noted Neuro: Other: patient's generalized weakness is improving right-sided hemiparesis is also improving which is longstanding Extrem: General: normal to inspection Objective Data Vital Signs Vital Signs: Vital Signs - 24 hr 10/09/19 14:00 10/09/19 21:15 10/09/19 21:31 Temperature 36.0 C L Pulse Rate 81 80 80 Respiratory Rate 17 18 Blood Pressure 119/58 L Pulse Oximetry 90 92 10/09/19 22:00 10/10/19 01:16 10/10/19 06:00 Temperature 36.4 C L 36.1 C L Pulse Rate 88 67 Respiratory Rate 19 18 Blood Pressure 142/82 H 127/66 Pulse Oximetry 90 96 99 10/10/19 08:25 10/10/19 08:54 Temperature Pulse Rate 67 Respiratory Rate Blood Pressure Pulse Oximetry 96 Intake/Output Intake/Output: Intake & Output 10/07/19 10/08/19 10/09/19 10/10/19 23:59 23:59 23:59 23:59 Intake Total 1320 500 Output Total 1450 600 Balance -130 -100 Meds/Results Medications: Active Medications Generic Name Dose Route Start Last Admin Trade Name Freq PRN Reason Stop Dose Admin Acetaminophen 650 mg 10/08/19 19:42 Tylenol Tablet PO Q6H PRN Fever Or Pain Albuterol 5 mg 10/08/19 19:42 Albuterol Sulf Neb 2.5mg/0.5ml INHALATION Q6HRT PRN Dyspnea Albuterol 2 puff 10/08/19 19:42 Proventil Hfa INHALATION QID PRN Dyspnea Amlodipine Besylate 2.5 mg 10/09/19 09:00 10/10/19 08:53 Norvasc PO 2.5 mg DAILY PRABHA Administration Aspirin 325 mg 10/09/19 09:00 10/10/19 08:52 Aspirin PO 325 mg DAILY PRABHA Administration Budesonide/Formoterol Fumarate 2 puff 10/08/19 20:00 10/10/19 08:28 Symbicort 160-4.5 Mcg (*Sp) Inhaler INHALATION 2 puff Q12HRT PRABHA Administration Buspirone HCl 10 mg 10/08/19 21:00 10/09/19 21:26 Buspar PO 10 mg HS PRABHA Administration Clonazepam 0.5 mg 10/09/19 09:00 10/10/19 09:02 Klonopin Tablet PO 0.5 mg DAILY PRABHA Administration Docusate Sodium 100 mg 10/08/19 21:00 10/10/19 08:52 Colace Capsule PO 100 mg Q12HR PRABHA Administration Famotidine 20 mg 10/08/19 21:00 10/10/19 08:52 Pepcid PO 20 mg
[2019-10-10] MEDS: LATANOPROST 0.005% OP SOLN 2.5 ML BTL 1 DROP EACH EYE (17:09)
[2019-10-10] MEDS: ACETAMINOPHEN 325 MG TABLET 650 MG PO (20:18)
[2019-10-10] MEDS: MELATONIN 5 MG TABLET 10 MG PO (20:18)
[2019-10-10] MEDS: busPIRone HCL 10 MG TABLET PO (20:18)
[2019-10-11 06:00] VITALS: BP 124/98; PULSE 89; RESP 18; TEMP 36.3; O2SAT 93
--- NOTE | 2019-10-11 08:41 | PM.CNOR ---
Assessment and Plan Assessment and plan (1) Degenerative joint disease of knee: Qualifiers: Osteoarthritis type: primary Laterality: right Qualified Code(s): M17.11 - Unilateral primary osteoarthritis, right knee Code(s): M17.10 - Unilateral primary osteoarthritis, unspecified knee Status: Acute Assessment and Plan: 74 year old female with history of bilateral knee pain, right worse than left. History, exam and radiographs reviewed with the patient. Nonweightbearing views of the right knee reveal no evidence of fracture or acute abnormality, no evidence of effusion/hemarthrosis. Patient denies new injury or falling directly onto the right knee at the time of her fall. She has been previously evaluated by an orthopedist 2 years ago and diagnosed with DJD. She has not undergone any treatment. She endorses pain/instability of the right knee and pain only in the left knee. She reports marked improvement in symptoms since the date of her admission. Discussed cortisone injection of the right knee but patient declines at this time. Discussed topical analgesics, patient would prefer that at this time. Will begin licodaine patches to bilateral knees. Patient would benefit from hinged knee brace to RIGHT knee for stability. Will request patient is fit with brace by [employer]. Continue PT/OT for bilateral LE strengthening. Fall Risk. May follow up as an outpatient if she desires for further treatment/cortisone injections, patient verbalized understanding. May also return to her established physician, Dr. Gonsales. History of Present Illness HPI Consult date: 10/11/19 Requesting physician: Juan Wong MD Consult reason: joint pain (RIGHT KNEE ) Chief complaint: generalized weakness Narrative: 74 year old female with a history of bilateral knee pain, right worse than left. She was admitted via EMS to the hospital s/p fall at her assisted living facility on 10/06. She has a history of a stroke with right-sided residual weakness and chronic RLE pain. Orthopedic consult requested for right knee pain. Patient reports a chornic history of bilateral knee pain, right worse than left for which she has been seen by orthopedist/sports medicine MD, Dr. Gonsales in the past. She reports having been evaluated by her 1-2 times for her knee DJD and was told radiographs revealed bone on bone arthritis. Per the patient, she refused treatment for her knee pain by Dr. Gonsales and has never had cortisone injections/conservative care. She also states she declined any sort of surgical intervention for the knees. Review of Systems Review of Systems: All systems reviewed & are unremarkable except as noted in HPI and below Constitutional: Constitutional: Denies chills, Denies night sweats and Reports weakness (b/l LE ) Eyes: Eyes: Reports no additional eye complaints ENT: Reports system reviewed and no additional complaints, except as documented Cardiovascular: Cardiovascular: Reports no additional cardiovascular complaints, Denies chest pain, Denies lightheadedness and Denies palpitations Respiratory: Respiratory: Denies no additional respiratory complaints and Denies wheezing Gastrointestinal: Gastrointestinal: Reports no additional gastrointestinal complaints and Denies abdominal pain Genitourinary: Genitourinary: Reports no additional female genitourinary complaints Musculoskeletal: Musculoskeletal: Reports arthralgias (bilateral knees, right greater than left. ) Integumentary/Breasts: Skin/Breast: Reports system reviewed and no additional complaints, except as docu Neurologic: Reports abnormal gait (weakness b/l LE ) Psychiatric: Psychiatric: Reports no additional psychiatric complaints [facility] Past Medical History Medical History Adenocarcinoma Ovary, breast Anxiety Arthritis Asthma Brain aneurysm COPD (chronic obstructive pulmonary disease) CVA (cerebral vascular accident) Residual r
[2019-10-11] MEDS: CLONAZEPAM 0.5 MG TAB PO (10:00)
[2019-10-11] MEDS: POTASSIUM CHLORIDE 20 MEQ TABLET.ER 40 MEQ PO (10:00)
[2019-10-11] MEDS: VENLAFAXINE HCL XR 75 MG CAP.ER.24H 150 MG PO (10:01)
[2019-10-11] MEDS: ASPIRIN 325 MG TABLET PO (10:01)
[2019-10-11] MEDS: LORATADINE 10 MG TABLET PO (10:01)
[2019-10-11] MEDS: ROSUVASTATIN 10 MG TABLET 20 MG PO (10:01)
[2019-10-11] MEDS: FAMOTIDINE 20 MG TABLET PO ×2 (10:02→21:32)
[2019-10-11] MEDS: polyethylene glycoL 3350 17 GM POWD.PACK PO (10:02)
[2019-10-11] MEDS: FUROSEMIDE 20 MG TABLET PO ×2 (10:02→17:35)
[2019-10-11] MEDS: METOPROLOL TARTRATE 25 MG TABLET PO ×2 (10:02→21:30)
[2019-10-11] MEDS: CHOLECALCIFEROL 1,000 UNIT TABLET 1000 UNITS PO (10:02)
[2019-10-11] MEDS: DOCUSATE SODIUM 100 MG CAPSULE PO ×2 (10:02→21:31)
[2019-10-11] MEDS: AMLODIPINE BESYLATE 2.5 MG TABLET PO (10:03)
[2019-10-11] MEDS: PANTOPRAZOLE 40 MG TABLET PO (10:04)
[2019-10-11] MEDS: TOLTERODINE TARTRATE 2 MG TABLET PO (11:52)
--- NOTE | 2019-10-11 12:41 | RPD ---
INDIVIDUALIZED PLAN OF CARE FOR Kimberlee Bullock Brief Synthesis of Pre-Admission Screen, Post-Admission Evaluation and Therapy Evaluations: The patient presents to rehab with generalized weakness. Comorbidities include urinary retention requiring jackson catheter, malaise and fatigue, receurrent falls, s/p ground level fall, anxiety, arthritis, asthma, COPD, CVA with right-residual weakness, fibromyalgia, GERD, hyperlipidemia, hypertension, hx lung cancer, home O2, peripheral neuropathy, sleep apnea, vertigo, hyponatremia, hyperglycemia, pain, YAYO, memory loss.The patient requires physician services for medical oversight and coordination of care. The patient needs physician monitoring and treatment of new continuous O2 at 3L (was only wearing at night for YAYO), hyponatremia, elevated BUN, hyperglycemia, urinary retention requiring jackson catheter, monitoring for adverse reactions to new medications, monitoring of infection, and pain control. The patient requires nursing services for frequent neuro checks, anticoagulation therapy, medication management and education, pressure relief and skin care management, monitoring of labs, bowel and bladder training, Jackson catheter management, and fall/safety precautions. Deficits include:ADLs, Balance, Cognition, Endurance,Mobility, Pain Management, ROM, Safety,Strength, Transfers Vice Investigator/Case Management for: Discharge Planning and Patient/Family Counseling Physical Therapy: 5 days per week for 90 minutes. Treatments may include: Therapeutic Exercise, Gait Training, Neuromuscular Re-education, Transfer Training, Community Reintegration, Bed Mobility, Patient/Family Education, Wheelchair Mobility Group Therapy/Concurrent Therapy Rationales: -Improve attention span during functional activities in a distracted environment. -Enhance problem solving and/or adequate judgment skills during functional activities in a distracted environment. -Promote increased safety awareness in a distracted environment to reduce fall risk with functional tasks, transfers, and ambulation to allow a more safe, self-sufficient return to the home environment. -Improve dynamic balance skills to promote safety and independence with functional activities in a distracted environment for maximum gain. Occupational Therapy: 5 days per week for 90 minutes. Treatments may include: Therapeutic Exercise, Therapeutic Activity, Cognitive Training, Self-Care Transfer Training, Community Reintegration, Home Management, Patient/Family Education, Wheelchair Mobility Training, Energy Conservation Training Group Therapy/Concurrent Therapy Rationales: -Allow therapist to observe and teach generalization and carry-over of skills learned in individual therapy. -Enhance problem solving and sequencing skills during therapeutic activities in a distracted environment. -Promote increased safety awareness in a realistic setting to reduce fall risk with functional tasks due to visual and verbal distractions. -Increase functional level with ADLs, ADL transfers and use of adaptive equipment through therapeutic activities with others while promoting safety to allow a more safe, self-sufficient return home. Medical Prognosis: Good Anticipated Length of Stay: 10 days Rehab Goals: Eating Goal: 06-Independent Oral Hygiene Goal: 06-Independent Toileting Hygiene Goal: 06-Independent Shower/Bathe Self Goal: 04-Supervision or Touching Assistance Upper Body Dressing Goal: 06-Independent Lower Body Dressing Goal: 06-Independent Putting On/Taking Off Footwear Goal: 06-Independent Rolling Left and Right Goal: 06-Independent Sit to Lying Goal: 06-Independent Lying to Sitting on Side of Bed Goal: 06-Independent Sit to Stand Goal: 06-Independent Chair/Iog-ia-Htafl Transfer Goal: 03-Partial/Moderate Assistance Toilet Transfer Goal: 04-Supervision or Touching Assistance Car Transfer Goal: 03-Partial/Moderate Assistance Walk 10' Goal: 06-Independent Walk 50' with Two Turns Goal: 06
--- NOTE | 2019-10-11 13:46 | WPDNEURORHBP ---
Subjective Date/time seen: 10/11/19 13:46 Interval history: patient was seen for right knee complaints however as I am told she refused to have any injection and would like to have a lidocaine patch for pain Otherwise the patient is not any discomfort and engage in therapy without any chest pain shortness of breath or any neurological issues Review of Systems Constitutional: Constitutional: Reports no additional constitutional complaints Eyes: Eyes: Reports no additional eye complaints ENT: Reports system reviewed and no additional complaints, except as documented Cardiovascular: Cardiovascular: Reports no additional cardiovascular complaints Respiratory: Respiratory: Reports no additional respiratory complaints Gastrointestinal: Gastrointestinal: Reports no additional gastrointestinal complaints Genitourinary: Genitourinary: Reports no additional female genitourinary complaints Musculoskeletal: Musculoskeletal: Reports no additional musculoskeletal complaints Integumentary/Breasts: Skin/Breast: Reports system reviewed and no additional complaints, except as docu Neurologic: Comments: old right hemiparesis remains stable and the patient is doing fairly well Psychiatric: Psychiatric: Reports no additional psychiatric complaints Functional Status Ambulation Ability Ability to Ambulate 10 Feet: Minimum Assistance X 1 Ambulation Assistive Devices: Walker, Wheeled Transfers Ability Ability to Transfer In/Out of Chair: Contact Guard Exam Const: General: comfortable and no acute distress HENMT: General nose exam: Normal nares present Mouth: Yes moist mucous membranes Eyes: General: appearance normal, both eyes and all related structures Neck: Neck: supple and no JVD Resp: Effort & Inspection: normal respiratory effort Auscultation: clear to auscultation bilaterally Cardio: Rate: regular rate Rhythm: regular rhythm GI: GI Palp: Yes Soft to palpation Auscultation: normal bowel sounds Skin: General skin exam: normal color and no rashes or lesions noted Neuro: Other: patient's overall neurological deficit which was from the previous stroke is stable she is engage in therapy and doing fairly well Extrem: Other: right knee has the pain and it olvin when she walks and she would like to have a patch lidocaine Psych: Mental Status: mental status grossly normal Objective Data Vital Signs Vital Signs: Vital Signs - 24 hr 10/10/19 14:00 10/10/19 20:13 10/10/19 20:18 Temperature 36.2 C L Pulse Rate 85 77 80 Respiratory Rate 18 18 Blood Pressure 116/85 Pulse Oximetry 94 10/10/19 22:00 10/11/19 06:00 Temperature 36.3 C L 36.3 C L Pulse Rate 116 H 89 Respiratory Rate 18 18 Blood Pressure 124/98 H 124/98 H Pulse Oximetry 93 93 Intake/Output Intake/Output: Intake & Output 10/08/19 10/09/19 10/10/19 10/11/19 23:59 23:59 23:59 23:59 Intake Total 1320 1385 600 Output Total 1450 1200 450 Balance -130 185 150 Meds/Results Medications: Active Medications Generic Name Dose Route Start Last Admin Trade Name Freq PRN Reason Stop Dose Admin Acetaminophen 650 mg 10/08/19 19:42 10/10/19 20:18 Tylenol Tablet PO 650 mg Q6H PRN Administration Fever Or Pain Albuterol 5 mg 10/08/19 19:42 Albuterol Sulf Neb 2.5mg/0.5ml INHALATION Q6HRT PRN Dyspnea Albuterol 2 puff 10/08/19 19:42 Proventil Hfa INHALATION QID PRN Dyspnea Amlodipine Besylate 2.5 mg 10/09/19 09:00 10/11/19 10:03 Norvasc PO 2.5 mg DAILY PRABHA Administration Aspirin 325 mg 10/09/19 09:00 10/11/19 10:01 Aspirin PO 325 mg DAILY PRABHA Administration Budesonide/Formoterol Fumarate 2 puff 10/08/19 20:00 10/11/19 08:31 Symbicort 160-4.5 Mcg (*Sp) Inhaler INHALATION 2 puff Q12HRT PRABHA Administration Buspirone HCl 10 mg 10/08/19 21:00 10/10/19 20:18 Buspar PO 10 mg HS PRABHA Administration Clonazepam 0.5 mg 10/09/19 09:00 10/11/19 10:00
[2019-10-11 14:00] VITALS: BP 113/58; PULSE 78; RESP 18; TEMP 36.4; O2SAT 94
[2019-10-11] MEDS: LIDOCAINE 5% PATCH 2 PATCH TRANSDERM (14:32)
[2019-10-11] MEDS: LATANOPROST 0.005% OP SOLN 2.5 ML BTL 1 DROP EACH EYE (17:35)
[2019-10-11 21:30] VITALS: PULSE 88
[2019-10-11] MEDS: MELATONIN 5 MG TABLET 10 MG PO (21:32)
[2019-10-11] MEDS: busPIRone HCL 10 MG TABLET PO (21:32)
[2019-10-11 21:48] VITALS: O2SAT 96
[2019-10-11 22:00] VITALS: BP 142/78; PULSE 91; RESP 18; TEMP 36.3; O2SAT 97
[2019-10-12] MEDS: ACETAMINOPHEN 325 MG TABLET 650 MG PO ×2 (00:52→22:55)
[2019-10-12] MEDS: GUAIFENESIN/DEXTROMETHORPHAN 10 ML UDC PO ×2 (01:39→09:24)
[2019-10-12 06:00] VITALS: BP 126/63; PULSE 72; RESP 19; TEMP 36.1; O2SAT 90
[2019-10-12] MEDS: DOCUSATE SODIUM 100 MG CAPSULE PO ×2 (09:17→20:33)
[2019-10-12] MEDS: AMLODIPINE BESYLATE 2.5 MG TABLET PO (09:17)
[2019-10-12] MEDS: CHOLECALCIFEROL 1,000 UNIT TABLET 1000 UNITS PO (09:17)
[2019-10-12] MEDS: VENLAFAXINE HCL XR 75 MG CAP.ER.24H 150 MG PO (09:17)
[2019-10-12] MEDS: FAMOTIDINE 20 MG TABLET PO ×2 (09:17→20:33)
[2019-10-12 09:18] VITALS: O2SAT 92
[2019-10-12] MEDS: ASPIRIN 325 MG TABLET PO (09:18)
[2019-10-12] MEDS: METOPROLOL TARTRATE 25 MG TABLET PO ×2 (09:18→20:34)
[2019-10-12] MEDS: FUROSEMIDE 20 MG TABLET PO ×2 (09:18→17:29)
[2019-10-12] MEDS: ROSUVASTATIN 10 MG TABLET 20 MG PO (09:18)
[2019-10-12] MEDS: TOLTERODINE TARTRATE 2 MG TABLET PO (09:18)
[2019-10-12] MEDS: PANTOPRAZOLE 40 MG TABLET PO (09:18)
[2019-10-12] MEDS: POTASSIUM CHLORIDE 20 MEQ TABLET.ER 40 MEQ PO (09:18)
[2019-10-12] MEDS: polyethylene glycoL 3350 17 GM POWD.PACK PO (09:19)
[2019-10-12] MEDS: LORATADINE 10 MG TABLET PO (09:19)
[2019-10-12] MEDS: CLONAZEPAM 0.5 MG TAB PO (09:22)
[2019-10-12] MEDS: LIDOCAINE 5% PATCH 2 PATCH TRANSDERM (09:22)
[2019-10-12 14:00] VITALS: BP 114/54; PULSE 85; RESP 18; TEMP 37.6; O2SAT 91
[2019-10-12] MEDS: LATANOPROST 0.005% OP SOLN 2.5 ML BTL 1 DROP EACH EYE (17:29)
[2019-10-12] MEDS: MELATONIN 5 MG TABLET 10 MG PO (20:33)
[2019-10-12] MEDS: busPIRone HCL 10 MG TABLET PO (20:33)
[2019-10-12 21:09] VITALS: BP 129/77; PULSE 102; RESP 18; TEMP 37.1; O2SAT 92
[2019-10-12 21:15] VITALS: O2SAT 94
--- NOTE | 2019-10-12 23:01 | PC.NURSE ---
pt requested tylenol. during administration of medication patient stated she was not tolerating that we didn't acknowledge the girls walking on the roof outside her window. patient stated she didn't have to tell us that there were people outside her window that we should know and stated it's neglect to not take care of that. Nursing staff asked her how we would know if she didn't tell us and patient continued to state that she didn't have to tell us anything. Nursing staff asked patient if she would like the blind lowered and she stated NO . will continue to monitor.
[2019-10-13] VITALS (8 sets, daily range): BP systolic 130–139; BP diastolic 71–76; PULSE 74–114; RESP 20; TEMP 36.3–37.5; O2SAT 90–97
[2019-10-13] MEDS: ASPIRIN 325 MG TABLET PO (09:02)
[2019-10-13] MEDS: FAMOTIDINE 20 MG TABLET PO ×2 (09:02→20:19)
[2019-10-13] MEDS: CHOLECALCIFEROL 1,000 UNIT TABLET 1000 UNITS PO (09:03)
[2019-10-13] MEDS: AMLODIPINE BESYLATE 2.5 MG TABLET PO (09:03)
[2019-10-13] MEDS: DOCUSATE SODIUM 100 MG CAPSULE PO ×2 (09:03→20:19)
[2019-10-13] MEDS: FUROSEMIDE 20 MG TABLET PO ×2 (09:03→17:20)
[2019-10-13] MEDS: LORATADINE 10 MG TABLET PO (09:03)
[2019-10-13] MEDS: POTASSIUM CHLORIDE 20 MEQ TABLET.ER 40 MEQ PO (09:04)
[2019-10-13] MEDS: PANTOPRAZOLE 40 MG TABLET PO (09:04)
[2019-10-13] MEDS: polyethylene glycoL 3350 17 GM POWD.PACK PO (09:04)
[2019-10-13] MEDS: VENLAFAXINE HCL XR 75 MG CAP.ER.24H 150 MG PO (09:04)
[2019-10-13] MEDS: METOPROLOL TARTRATE 25 MG TABLET PO ×2 (09:04→20:19)
[2019-10-13] MEDS: ROSUVASTATIN 10 MG TABLET 20 MG PO (09:04)
[2019-10-13] MEDS: TOLTERODINE TARTRATE 2 MG TABLET PO (09:05)
[2019-10-13] MEDS: LIDOCAINE 5% PATCH 2 PATCH TRANSDERM (09:06)
[2019-10-13] MEDS: CLONAZEPAM 0.5 MG TAB PO (09:06)
[2019-10-13] MEDS: ACETAMINOPHEN 325 MG TABLET 650 MG PO ×2 (09:17→23:27)
[2019-10-13] MEDS: LATANOPROST 0.005% OP SOLN 2.5 ML BTL 1 DROP EACH EYE (17:20)
[2019-10-13] MEDS: MELATONIN 5 MG TABLET 10 MG PO (20:19)
[2019-10-13] MEDS: busPIRone HCL 10 MG TABLET PO (20:19)
[2019-10-13] MEDS: GUAIFENESIN/DEXTROMETHORPHAN 10 ML UDC PO (20:23)
[2019-10-14 06:00] VITALS: BP 124/62; PULSE 77; RESP 18; TEMP 36.7; O2SAT 96
[2019-10-14 09:01] VITALS: PULSE 78; RESP 18; O2SAT 96
--- NOTE | 2019-10-14 09:21 | WPDNEURORHBP ---
Subjective Date/time seen: 10/14/19 09:21 Interval history: no specific complaints Review of Systems Review of Systems: All systems reviewed & are unremarkable except as noted in HPI and below Functional Status Ambulation Ability Ability to Ambulate 10 Feet: Minimum Assistance X 1 Ambulation Assistive Devices: Walker, Wheeled Transfers Ability Ability to Transfer In/Out of Chair: Contact Guard Exam Const: General: comfortable and no acute distress Eyes: General: appearance normal, both eyes and all related structures Neck: Neck: full ROM Chest: Chest palpation & inspection: normal inspection of the chest Resp: Auscultation: clear to auscultation bilaterally Cardio: Rate: regular rate Rhythm: regular rhythm GI: Auscultation: normal bowel sounds Neuro: General: patient oriented x3 Cranial nerves: Yes CN's II-XII intact bilaterally Cognition (Neuro): normal cognition Psych: Appearance: grossly normal Objective Data Vital Signs Vital Signs: Vital Signs - 24 hr 10/13/19 09:55 10/13/19 14:00 10/13/19 20:19 Temperature 36.8 C Pulse Rate 82 82 Respiratory Rate 20 Blood Pressure 138/76 Pulse Oximetry 91 97 10/13/19 22:00 10/14/19 06:00 10/14/19 09:01 Temperature 37.5 C 36.7 C Pulse Rate 114 H 77 78 Respiratory Rate 20 18 18 Blood Pressure 130/71 124/62 Pulse Oximetry 90 96 96 Intake/Output Intake/Output: Intake & Output 10/11/19 10/12/19 10/13/19 10/14/19 23:59 23:59 23:59 23:59 Intake Total 2070 960 720 380 Output Total 1275 1100 450 Balance 795 -140 720 -70 Meds/Results Medications: Active Medications Generic Name Dose Route Start Last Admin Trade Name Freq PRN Reason Stop Dose Admin Acetaminophen 650 mg 10/08/19 19:42 10/13/19 23:27 Tylenol Tablet PO 650 mg Q6H PRN Administration Fever Or Pain Albuterol 5 mg 10/08/19 19:42 Albuterol Sulf Neb 2.5mg/0.5ml INHALATION Q6HRT PRN Dyspnea Albuterol 2 puff 10/08/19 19:42 Proventil Hfa INHALATION QID PRN Dyspnea Amlodipine Besylate 2.5 mg 10/09/19 09:00 10/13/19 09:03 Norvasc PO 2.5 mg DAILY PRABHA Administration Aspirin 325 mg 10/09/19 09:00 10/13/19 09:02 Aspirin PO 325 mg DAILY PRABHA Administration Budesonide/Formoterol Fumarate 2 puff 10/08/19 20:00 10/14/19 08:56 Symbicort 160-4.5 Mcg (*Sp) Inhaler INHALATION 2 puff Q12HRT PRABHA Administration Buspirone HCl 10 mg 10/08/19 21:00 10/13/19 20:19 Buspar PO 10 mg HS PRABHA Administration Clonazepam 0.5 mg 10/09/19 09:00 10/13/19 09:06 Klonopin Tablet PO 0.5 mg DAILY PRABHA Administration Docusate Sodium 100 mg 10/08/19 21:00 10/13/19 20:19 Colace Capsule PO 100 mg Q12HR PRABHA Administration Famotidine 20 mg 10/08/19 21:00 10/13/19 20:19 Pepcid PO 20 mg Q12HR PRABHA Administration Furosemide 20 mg 10/09/19 09:00 10/13/19 17:20 Lasix Tablet PO 20 mg BID PRABHA Administration Guaifenesin/Dextromethorphan 10 ml 10/12/19 01:16 10/13/19 20:23 Robitussin-Dm Syrup PO 10 ml Q4H PRN Administration Cough Latanoprost 1 drop 10/09/19 18:00 10/13/19 17:20 Xalatan EACH EYE 1 drop QPM PRABHA Administration Lidocaine 2 patch 10/11/19 09:00 10/13/19 09:06 Lidoderm TRANSDERM 2 patch DAILY PRABHA Administration Loratadine 10 mg 10/09/19 09:00 10/13/19 09:03 Claritin PO 10 mg DAILY PRABHA Administration Melatonin 10 mg 10/08/19 21:00 10/13/19 20:19 Melatonin PO 10 mg HS PRABHA Administration Metoprolol Tartrate 25 mg 10/08/19 21:00 10/13/19 20:19 Lopressor PO 25 mg Q12HR PRABHA Administration Pantoprazole Sodium 40 mg 10/09/19 09:00 10/13/19 09:04 Protonix PO 11/08/19 09:01 40 mg DAILY PRABHA Administration Polyethylene Glycol 17 gm 10/09/19 09:00 10/13/19 09:04 Miralax PO 17 gm DAILY PRABHA Administration Potassium Chloride 40 meq 10/09/19 09:00 10/13/19 09:04 Kcl Tablet PO
[2019-10-14] MEDS: LORATADINE 10 MG TABLET PO (10:20)
[2019-10-14] MEDS: ROSUVASTATIN 10 MG TABLET 20 MG PO (10:20)
[2019-10-14] MEDS: FAMOTIDINE 20 MG TABLET PO ×2 (10:20→21:51)
[2019-10-14] MEDS: CHOLECALCIFEROL 1,000 UNIT TABLET 1000 UNITS PO (10:20)
[2019-10-14] MEDS: VENLAFAXINE HCL XR 75 MG CAP.ER.24H 150 MG PO (10:20)
[2019-10-14] MEDS: AMLODIPINE BESYLATE 2.5 MG TABLET PO (10:20)
[2019-10-14] MEDS: TOLTERODINE TARTRATE 2 MG TABLET PO (10:20)
[2019-10-14] MEDS: ASPIRIN 325 MG TABLET PO (10:20)
[2019-10-14] MEDS: POTASSIUM CHLORIDE 20 MEQ TABLET.ER 40 MEQ PO (10:20)
[2019-10-14] MEDS: DOCUSATE SODIUM 100 MG CAPSULE PO ×2 (10:20→21:50)
[2019-10-14 10:21] VITALS: PULSE 78
[2019-10-14] MEDS: METOPROLOL TARTRATE 25 MG TABLET PO ×2 (10:21→21:51)
[2019-10-14] MEDS: PANTOPRAZOLE 40 MG TABLET PO (10:21)
[2019-10-14] MEDS: FUROSEMIDE 20 MG TABLET PO ×2 (10:21→17:36)
[2019-10-14] MEDS: LIDOCAINE 5% PATCH 2 PATCH TRANSDERM (10:21)
[2019-10-14] MEDS: CLONAZEPAM 0.5 MG TAB PO (10:24)
[2019-10-14 14:00] VITALS: BP 124/74; PULSE 84; RESP 19; TEMP 36.4; O2SAT 98
[2019-10-14] MEDS: LATANOPROST 0.005% OP SOLN 2.5 ML BTL 1 DROP EACH EYE (17:36)
[2019-10-14 20:25] VITALS: BP 141/84; PULSE 94; RESP 19; TEMP 36.4; O2SAT 91
[2019-10-14] MEDS: MELATONIN 5 MG TABLET 10 MG PO (21:50)
[2019-10-14 21:51] VITALS: PULSE 90
[2019-10-14] MEDS: busPIRone HCL 10 MG TABLET PO (21:51)
[2019-10-15 06:39] VITALS: BP 108/58; PULSE 78; RESP 16; TEMP 36.6; O2SAT 94
[2019-10-15] MEDS: CHOLECALCIFEROL 1,000 UNIT TABLET 1000 UNITS PO (08:38)
[2019-10-15] MEDS: AMLODIPINE BESYLATE 2.5 MG TABLET PO (08:38)
[2019-10-15] MEDS: DOCUSATE SODIUM 100 MG CAPSULE PO ×2 (08:38→20:36)
[2019-10-15] MEDS: LORATADINE 10 MG TABLET PO (08:39)
[2019-10-15] MEDS: LIDOCAINE 5% PATCH 2 PATCH TRANSDERM (08:39)
[2019-10-15] MEDS: FAMOTIDINE 20 MG TABLET PO ×2 (08:39→20:37)
[2019-10-15] MEDS: FUROSEMIDE 20 MG TABLET PO ×2 (08:39→17:20)
[2019-10-15] MEDS: PANTOPRAZOLE 40 MG TABLET PO (08:40)
[2019-10-15] MEDS: ROSUVASTATIN 10 MG TABLET 20 MG PO (08:40)
[2019-10-15] MEDS: METOPROLOL TARTRATE 25 MG TABLET PO ×2 (08:40→20:37)
[2019-10-15] MEDS: TOLTERODINE TARTRATE 2 MG TABLET PO (08:40)
[2019-10-15] MEDS: polyethylene glycoL 3350 17 GM POWD.PACK PO (08:40)
[2019-10-15] MEDS: POTASSIUM CHLORIDE 20 MEQ TABLET.ER 40 MEQ PO (08:40)
[2019-10-15] MEDS: VENLAFAXINE HCL XR 75 MG CAP.ER.24H 150 MG PO (08:41)
[2019-10-15] MEDS: ASPIRIN 325 MG TABLET PO (08:56)
[2019-10-15] MEDS: CLONAZEPAM 0.5 MG TAB PO (08:57)
[2019-10-15 09:07] VITALS: PULSE 80; RESP 18; O2SAT 92
[2019-10-15] MEDS: GUAIFENESIN/DEXTROMETHORPHAN 10 ML UDC PO (11:15)
--- NOTE | 2019-10-15 12:58 | WPDNEURORHBP ---
Subjective Date/time seen: 10/15/19 12:58 Interval history: patient is here with generalized weakness the son was present at the time of the interview Patient is doing fairly well and it is apparent that the knee has been the impediment for her progress however it has been present even before she was admitted to acute rehab. She is using lidocaine patch for right knee arthritis right hemiparesis remains the same no chest pain no shortness of breath no fever no chills no sore throat Review of Systems Constitutional: Constitutional: Reports no additional constitutional complaints Eyes: Eyes: Reports no additional eye complaints ENT: Reports system reviewed and no additional complaints, except as documented Cardiovascular: Cardiovascular: Reports no additional cardiovascular complaints Respiratory: Respiratory: Reports no additional respiratory complaints Gastrointestinal: Gastrointestinal: Reports no additional gastrointestinal complaints Genitourinary: Genitourinary: Reports no additional female genitourinary complaints Musculoskeletal: Musculoskeletal: Reports no additional musculoskeletal complaints Integumentary/Breasts: Skin/Breast: Reports system reviewed and no additional complaints, except as docu Neurologic: Comments: patient remains alert will rotate times place and person right-sided hemiparesis is about the same overall neurological issues doing better the weakness has improved the issue remains of the right knee arthritis and buckling Functional Status Ambulation Ability Ability to Ambulate 10 Feet: Contact Guard Ambulation Assistive Devices: Walker, Wheeled Transfers Ability Ability to Transfer In/Out of Chair: Contact Guard Exam Const: General: comfortable and no acute distress HENMT: General nose exam: Normal nares present Mouth: Yes moist mucous membranes Eyes: General: appearance normal, both eyes and all related structures Neck: Neck: supple and no JVD Resp: Effort & Inspection: normal respiratory effort Auscultation: clear to auscultation bilaterally Cardio: Rate: regular rate Rhythm: regular rhythm GI: GI Palp: Yes Soft to palpation Auscultation: normal bowel sounds Skin: General skin exam: normal color and no rashes or lesions noted Neuro: Other: patient's mental status is fairly decent and normal likewise cranial examination is also fairly decent and within the normal range right-sided hemiparesis remains about the same and maybe a tad better with the physical therapy and conditioning Extrem: Other: right knee osteoarthritis and unstable right knee joint Psych: Mental Status: mental status grossly normal Objective Data Vital Signs Vital Signs: Vital Signs - 24 hr 10/14/19 14:00 10/14/19 20:25 02/03/20 21:51 Temperature 36.4 C L 36.4 C L Pulse Rate 84 94 90 Respiratory Rate 19 19 Blood Pressure 124/74 141/84 H Pulse Oximetry 98 91 10/15/19 06:39 10/15/19 09:07 Temperature 36.6 C Pulse Rate 78 80 Respiratory Rate 16 18 Blood Pressure 108/58 L Pulse Oximetry 94 92 Intake/Output Intake/Output: Intake & Output 10/12/19 10/13/19 10/14/19 10/15/19 23:59 23:59 23:59 23:59 Intake Total 843 249 5738 600 Output Total 1100 1100 Balance -140 720 660 600 Meds/Results Medications: Active Medications Generic Name Dose Route Start Last Admin Trade Name Freq PRN Reason Stop Dose Admin Acetaminophen 650 mg 10/08/19 19:42 10/13/19 23:27 Tylenol Tablet PO 650 mg Q6H PRN Administration Fever Or Pain Albuterol 5 mg 10/08/19 19:42 Albuterol Sulf Neb 2.5mg/0.5ml INHALATION Q6HRT PRN Dyspnea Albuterol 2 puff 10/08/19 19:42 Proventil Hfa INHALATION QID PRN Dyspnea Amlodipine Besylate 2.5 mg 10/09/19 09:00 10/15/19 08:38 Norvasc PO 2.5 mg DAILY PRABHA Administration Aspirin 325 mg 10/09/19 09:00 10/15/19 08:56 Aspirin PO 325 mg DAILY PRABHA Administration Budesonide/Formoterol Fumarate 2
--- NOTE | 2019-10-15 13:26 | PCCCNOTE ---
On 10/15/19, the student, [Antony Kiser ], provided care and completed [facility] documentation on this patient. I have reviewed the student's documentation and agree with the findings.
[2019-10-15 14:00] VITALS: BP 123/61; PULSE 76; RESP 18; TEMP 36.1; O2SAT 90
[2019-10-15 14:00] LABS: Add Urine Microscopic? YES; Appearance Urine Cloudy (Clear); Bacteria Urine Trace /hpf; Bilirubin Urine Negative (Negative); Blood Urine 3+ (Negative); Budding Yeast Urine Present /hpf; Color Urine Yellow (Yellow); Glucose Urine UA Negative (Negative); Ketones Urine Negative (Negative); Leukocyte Esterase Ur 2+ LEU/UL (Negative); Mucus Urine Heavy /lpf; Nitrate Urine Negative (Negative); Protein Urine Negative (Negative); RBC Urine >75 /hpf (0-2); Specific Grav Ur 1.026 (1.001-1.035); Squamous Epithelial Cell Urine Few /hpf (Few); WBC Urine 21-30 /hpf
[2019-10-15] MEDS: LATANOPROST 0.005% OP SOLN 2.5 ML BTL 1 DROP EACH EYE (17:21)
[2019-10-15] MEDS: busPIRone HCL 10 MG TABLET PO (20:36)
[2019-10-15] MEDS: MELATONIN 5 MG TABLET 10 MG PO (20:37)
[2019-10-15 21:26] VITALS: PULSE 82; RESP 18; O2SAT 94
[2019-10-15 22:00] VITALS: BP 131/64; PULSE 97; RESP 16; TEMP 36.1; O2SAT 90
[2019-10-16] VITALS (7 sets, daily range): BP systolic 122–147; BP diastolic 58–87; PULSE 70–109; RESP 16–20; TEMP 36–36.4; O2SAT 91–97
[2019-10-16] MEDS: ACETAMINOPHEN 325 MG TABLET 650 MG PO ×2 (01:39→19:57)
[2019-10-16 04:56] LABS: Basophils Percent Auto 0.7 % (0.2-1.2); Eosinophils Absolute Auto 0.1 K/mm3 (0-0.3); Eosinophils Percent Auto 2.6 % (0-4.4); Hematocrit 38.2 % (37.0-47.0); Hemoglobin 11.8 g/dL (12.0-15.0); Immature Granulocyte Absolute 0.01 K/mm3 (0.00-0.031); Immature Granulocyte Percent A 0.2 % (0-0.5); Lymphocytes Absolute Auto 0.98 K/mm3 (0.9-3.2); Lymphocytes Percent Auto 21.6 % (18.3-44.2); Mean Corpuscular HGB Conc 30.9 g/dl (32-36); Mean Corpuscular Hemoglobin 28.1 pg (26-34); Mean Platelet Volume 9.2 fl (7.4-10.4); Monocytes Absolute Auto 0.6 K/mm3 (0.1-0.6); Monocytes Percent Auto 13.4 % (2.6-8.5); Neutrophils Absolute Auto 2.8 K/mm3 (1.3-6.7); Neutrophils Percent Auto 61.5 % (45.5-73.1); Platelet Count Result 162 k/mm3 (150-375); Red Cell Distribution Width 14.1 % (11.5-14.5); White Blood Count 4.5 K/mm3 (4.5-10.0)
[2019-10-16 05:14] LABS: Blood Urea Nitrogen 20 mg/dL (7-17); Calcium 8.5 mg/dL (8.4-10.2); Carbon Dioxide 32 mmol/L (22-30); Chloride 101 mmol/L (98-107); Estimated CRCL calculation 68 ml/min; Estimated Glomerular Filt Rate > 60; Glucose 110 mg/dL (65-105); Potassium 3.8 mmol/L (3.4-5.0); Sodium 138 mmol/L (137-145)
[2019-10-16] MEDS: ROSUVASTATIN 10 MG TABLET 20 MG PO (08:47)
[2019-10-16] MEDS: DOCUSATE SODIUM 100 MG CAPSULE PO (08:47)
[2019-10-16] MEDS: GUAIFENESIN/DEXTROMETHORPHAN 10 ML UDC PO ×2 (08:47→23:32)
[2019-10-16] MEDS: FAMOTIDINE 20 MG TABLET PO ×2 (08:47→19:58)
[2019-10-16] MEDS: AMLODIPINE BESYLATE 2.5 MG TABLET PO (08:48)
[2019-10-16] MEDS: VENLAFAXINE HCL XR 75 MG CAP.ER.24H 150 MG PO (08:48)
[2019-10-16] MEDS: LORATADINE 10 MG TABLET PO (08:48)
[2019-10-16] MEDS: METOPROLOL TARTRATE 25 MG TABLET PO ×2 (08:49→19:59)
[2019-10-16] MEDS: POTASSIUM CHLORIDE 20 MEQ TABLET.ER 40 MEQ PO (08:49)
[2019-10-16] MEDS: TOLTERODINE TARTRATE 2 MG TABLET PO (08:50)
[2019-10-16] MEDS: CHOLECALCIFEROL 1,000 UNIT TABLET 1000 UNITS PO (08:50)
[2019-10-16] MEDS: FUROSEMIDE 20 MG TABLET PO ×2 (08:51→17:46)
[2019-10-16] MEDS: PANTOPRAZOLE 40 MG TABLET PO (08:51)
[2019-10-16] MEDS: LIDOCAINE 5% PATCH 2 PATCH TRANSDERM (08:54)
[2019-10-16] MEDS: CLONAZEPAM 0.5 MG TAB PO (08:55)
[2019-10-16] MEDS: ASPIRIN 325 MG TABLET PO (11:06)
--- NOTE | 2019-10-16 12:27 | WPDNEURORHBP ---
Subjective Date/time seen: 10/16/19 12:27 Interval history: patient is feeling little fatigue and tired probably related to at least by the urinalysis and other UTI the cultures are pending Otherwise she does not have any chest pain headache nausea vomiting shortness of breath For her GI symptoms she is already on Pepcid and Protonix she did have a bowel movement and feeling little bit better No fevers chills sore throat Review of Systems Constitutional: Constitutional: Reports no additional constitutional complaints Eyes: Eyes: Reports no additional eye complaints ENT: Reports system reviewed and no additional complaints, except as documented Cardiovascular: Cardiovascular: Reports no additional cardiovascular complaints Respiratory: Respiratory: Reports no additional respiratory complaints Gastrointestinal: Gastrointestinal: Reports no additional gastrointestinal complaints Genitourinary: Genitourinary: Reports no additional female genitourinary complaints Musculoskeletal: Musculoskeletal: Reports no additional musculoskeletal complaints Integumentary/Breasts: Skin/Breast: Reports system reviewed and no additional complaints, except as docu Neurologic: Reports system reviewed and no additional complaints, except as documented Functional Status Ambulation Ability Ability to Ambulate 10 Feet: Contact Guard Ambulation Assistive Devices: Walker, Wheeled Transfers Ability Ability to Transfer In/Out of Chair: Contact Guard Exam Const: General: comfortable and no acute distress HENMT: General nose exam: Normal nares present Mouth: Yes moist mucous membranes Eyes: General: appearance normal, both eyes and all related structures Neck: Neck: supple and no JVD Resp: Effort & Inspection: normal respiratory effort Auscultation: clear to auscultation bilaterally Cardio: Rate: regular rate Rhythm: regular rhythm GI: GI Palp: Yes Soft to palpation Auscultation: normal bowel sounds Skin: General skin exam: normal color and no rashes or lesions noted Neuro: Other: patient remains awake and alert will oriented in time place and person with mild short-term memory deficit and old right-sided weakness which has been improving her right knee is the main problem because it olvin when she puts pressure on it her pain is better controlled and she is tolerating therapy fairly well Extrem: Left lower extremity: hip/thigh not examined Other: bilateral knee arthritis and mild swelling which remains stable Psych: Mental Status: mental status grossly normal Objective Data Vital Signs Vital Signs: Vital Signs - 24 hr 10/15/19 14:00 10/15/19 21:26 10/15/19 22:00 Temperature 36.1 C L 36.1 C L Pulse Rate 76 82 97 Respiratory Rate 18 18 16 Blood Pressure 123/61 131/64 Pulse Oximetry 90 94 90 10/16/19 06:00 10/16/19 08:08 10/16/19 08:49 Temperature 36.2 C L Pulse Rate 70 81 88 Respiratory Rate 18 16 Blood Pressure 131/58 L Pulse Oximetry 97 92 Intake/Output Intake/Output: Intake & Output 10/13/19 10/14/19 10/15/19 10/16/19 23:59 23:59 23:59 23:59 Intake Total 720 1760 1200 240 Output Total 1100 975 Balance 720 660 225 240 Meds/Results Medications: Active Medications Generic Name Dose Route Start Last Admin Trade Name Freq PRN Reason Stop Dose Admin Acetaminophen 650 mg 10/08/19 19:42 10/16/19 01:39 Tylenol Tablet PO 650 mg Q6H PRN Administration Fever Or Pain Albuterol 5 mg 10/08/19 19:42 Albuterol Sulf Neb 2.5mg/0.5ml INHALATION Q6HRT PRN Dyspnea Albuterol 2 puff 10/08/19 19:42 Proventil Hfa INHALATION QID PRN Dyspnea Amlodipine Besylate 2.5 mg 10/09/19 09:00 10/16/19 08:48 Norvasc PO 2.5 mg DAILY PRABHA Administration Aspirin 325 mg 10/09/19 09:00 10/16/19 11:06 Aspirin PO 325 mg DAILY PRABHA Administration Budesonide/Formoterol Fumarate 2 puff 10/08/19 20:00 10/16/19 08:08 Symbicort 160-4.5 Mcg (*Sp) Inh
--- NOTE | 2019-10-16 13:27 | PCDIET ---
Nutrition Follow-Up Complete: Obesity related to hx excessive energy intake as evidenced by patient statements, BMI of 34.8. Intakes >75%, gradual weight loss of 1-2 pounds per week Goal:Patient has been consuming 50-100% of meals since 10/10. No weight loss recorded. Nutrition recommendation: Current diet order of Heart Healthy diet appropriate. Recommend weight be taken and recorded again. Last recorded weight is 94.8 kg. Bowel Motility:+BM 2/5 Labs Reviewed:Hgb (11.8), Na(138), k (3.8), BUN(20), Glu(110) Meds Noted:Vit D, KCl, lasix, protonix, colace, miralax Additional Notes: Patient reports appetite is good, eating 50-100% of meals. Complained of slight nausea caused by cough, states she has alerted the nursing staff of this issue. Will continue to monitor intake, weight and labs. Follow up in 7 days.
--- NOTE | 2019-10-16 13:37 | PCNSR ---
On 10/16/19, the student, Lucie Siu, provided care and completed [facility] documentation on this patient. I have reviewed the student's documentation and agree with the findings.
[2019-10-16] MEDS: LATANOPROST 0.005% OP SOLN 2.5 ML BTL 1 DROP EACH EYE (17:47)
[2019-10-16] MEDS: MELATONIN 5 MG TABLET 10 MG PO (19:58)
[2019-10-16] MEDS: busPIRone HCL 10 MG TABLET PO (19:59)
[2019-10-17 06:00] VITALS: BP 132/62; PULSE 75; RESP 20; TEMP 36.1; O2SAT 96
[2019-10-17] MEDS: VENLAFAXINE HCL XR 75 MG CAP.ER.24H 150 MG PO (08:44)
[2019-10-17] MEDS: ROSUVASTATIN 10 MG TABLET 20 MG PO (08:44)
[2019-10-17] MEDS: LIDOCAINE 5% PATCH 2 PATCH TRANSDERM (08:44)
[2019-10-17] MEDS: ASPIRIN 325 MG TABLET PO (08:44)
[2019-10-17] MEDS: CHOLECALCIFEROL 1,000 UNIT TABLET 1000 UNITS PO (08:44)
[2019-10-17] MEDS: POTASSIUM CHLORIDE 20 MEQ TABLET.ER 40 MEQ PO (08:44)
[2019-10-17 08:45] VITALS: PULSE 75
[2019-10-17] MEDS: LORATADINE 10 MG TABLET PO (08:45)
[2019-10-17] MEDS: FAMOTIDINE 20 MG TABLET PO ×2 (08:45→20:05)
[2019-10-17] MEDS: METOPROLOL TARTRATE 25 MG TABLET PO ×2 (08:45→20:05)
[2019-10-17] MEDS: TOLTERODINE TARTRATE 2 MG TABLET PO (08:45)
[2019-10-17] MEDS: FUROSEMIDE 20 MG TABLET PO ×2 (08:45→16:59)
[2019-10-17] MEDS: PANTOPRAZOLE 40 MG TABLET PO (08:45)
[2019-10-17] MEDS: AMLODIPINE BESYLATE 2.5 MG TABLET PO (08:45)
[2019-10-17] MEDS: CLONAZEPAM 0.5 MG TAB PO (08:48)
--- NOTE | 2019-10-17 11:02 | WPDNEURORHBP ---
Subjective Date/time seen: 10/17/19 11:02 Interval history: patient is here for generalized weakness with previous history of having had right-sided hemiparesis doing very well telling me that she has not walked as much as she has done on the rehab and feels good about it Her knee issues also stable and she is able to cope with it with lidocaine patch she denies any headache chest pain shortness of breath fever chills diarrhea vomiting Review of Systems Constitutional: Constitutional: Reports no additional constitutional complaints Eyes: Eyes: Reports no additional eye complaints ENT: Reports system reviewed and no additional complaints, except as documented Cardiovascular: Cardiovascular: Reports no additional cardiovascular complaints Respiratory: Respiratory: Reports no additional respiratory complaints Gastrointestinal: Gastrointestinal: Reports no additional gastrointestinal complaints Genitourinary: Genitourinary: Reports no additional female genitourinary complaints Musculoskeletal: Musculoskeletal: Reports no additional musculoskeletal complaints Integumentary/Breasts: Skin/Breast: Reports system reviewed and no additional complaints, except as docu Neurologic: Reports system reviewed and no additional complaints, except as documented Psychiatric: Psychiatric: Reports no additional psychiatric complaints Functional Status Ambulation Ability Ability to Ambulate 10 Feet: Minimum Assistance X 1 Ambulation Assistive Devices: Walker, Wheeled Transfers Ability Ability to Transfer In/Out of Chair: Contact Guard Exam Const: General: comfortable and no acute distress HENMT: General nose exam: Normal nares present Mouth: Yes moist mucous membranes Eyes: General: appearance normal, both eyes and all related structures Neck: Neck: supple and no JVD Resp: Effort & Inspection: normal respiratory effort Auscultation: clear to auscultation bilaterally Cardio: Rate: regular rate Rhythm: regular rhythm GI: GI Palp: Yes Soft to palpation Auscultation: normal bowel sounds Skin: General skin exam: normal color and no rashes or lesions noted Neuro: Other: patient's right-sided hemiparesis along with the generalized weakness has improved she remains alert well oriented time place and person and no neurological deficit is noted she engage in therapy and doing fairly well Extrem: Other: arthritic changes bilateral knees right more than the left Psych: Mental Status: mental status grossly normal Objective Data Vital Signs Vital Signs: Vital Signs - 24 hr 10/16/19 14:00 10/16/19 19:02 10/16/19 19:59 Temperature 36.0 C L Pulse Rate 81 88 Respiratory Rate 18 Blood Pressure 122/67 Pulse Oximetry 96 91 10/16/19 21:18 10/17/19 06:00 10/17/19 08:45 Temperature 36.4 C 36.1 C L Pulse Rate 109 H 75 75 Respiratory Rate 20 20 Blood Pressure 147/87 H 132/62 Pulse Oximetry 93 96 Intake/Output Intake/Output: Intake & Output 10/14/19 10/15/19 10/16/19 10/17/19 23:59 23:59 23:59 23:59 Intake Total 1760 1200 1520 360 Output Total 1100 975 550 400 Balance 660 225 970 -40 Meds/Results Medications: Active Medications Generic Name Dose Route Start Last Admin Trade Name Freq PRN Reason Stop Dose Admin Acetaminophen 650 mg 10/08/19 19:42 10/16/19 19:57 Tylenol Tablet PO 650 mg Q6H PRN Administration Fever Or Pain Albuterol 5 mg 10/08/19 19:42 Albuterol Sulf Neb 2.5mg/0.5ml INHALATION Q6HRT PRN Dyspnea Albuterol 2 puff 10/08/19 19:42 Proventil Hfa INHALATION QID PRN Dyspnea Amlodipine Besylate 2.5 mg 10/09/19 09:00 10/17/19 08:45 Norvasc PO 2.5 mg DAILY PRABHA Administration Aspirin 325 mg 10/09/19 09:00 10/17/19 08:44 Aspirin PO 325 mg DAILY PRABHA Administration Budesonide/Formoterol Fumarate 2 puff 10/08/19 20:00 10/17/19 09:17 Symbicort 160-4.5 Mcg (*Sp) Inhaler INHALATION 2 puff Q12HRT PRABHA Administration
[2019-10-17 14:00] VITALS: BP 114/68; PULSE 91; RESP 18; TEMP 36.2; O2SAT 90
[2019-10-17] MEDS: LATANOPROST 0.005% OP SOLN 2.5 ML BTL 1 DROP EACH EYE (16:59)
[2019-10-17 20:05] VITALS: PULSE 89
[2019-10-17] MEDS: ACETAMINOPHEN 325 MG TABLET 650 MG PO (20:05)
[2019-10-17] MEDS: MELATONIN 5 MG TABLET 10 MG PO (20:05)
[2019-10-17] MEDS: DOCUSATE SODIUM 100 MG CAPSULE PO (20:06)
[2019-10-17] MEDS: busPIRone HCL 10 MG TABLET PO (20:06)
[2019-10-17 22:00] VITALS: BP 151/93; PULSE 110; RESP 19; TEMP 36.3; O2SAT 89
[2019-10-18] VITALS (8 sets, daily range): BP systolic 122–130; BP diastolic 62–72; PULSE 79–104; RESP 1–19; TEMP 36.2–36.6; O2SAT 91–95
--- NOTE | 2019-10-18 06:19 | PCRCNOTE ---
Window of time for administration has passed. See next scheduled administration.
[2019-10-18] MEDS: TOLTERODINE TARTRATE 2 MG TABLET PO (09:55)
[2019-10-18] MEDS: CHOLECALCIFEROL 1,000 UNIT TABLET 1000 UNITS PO (09:55)
[2019-10-18] MEDS: ASPIRIN 325 MG TABLET PO (09:55)
[2019-10-18] MEDS: PANTOPRAZOLE 40 MG TABLET PO (09:55)
[2019-10-18] MEDS: AMLODIPINE BESYLATE 2.5 MG TABLET PO (09:55)
[2019-10-18] MEDS: POTASSIUM CHLORIDE 20 MEQ TABLET.ER 40 MEQ PO (09:55)
[2019-10-18] MEDS: VENLAFAXINE HCL XR 75 MG CAP.ER.24H 150 MG PO (09:55)
[2019-10-18] MEDS: FAMOTIDINE 20 MG TABLET PO ×2 (09:55→20:27)
[2019-10-18] MEDS: LORATADINE 10 MG TABLET PO (09:55)
[2019-10-18] MEDS: LIDOCAINE 5% PATCH 2 PATCH TRANSDERM (09:56)
[2019-10-18] MEDS: ROSUVASTATIN 10 MG TABLET 20 MG PO (09:57)
[2019-10-18] MEDS: CLONAZEPAM 0.5 MG TAB PO (09:57)
[2019-10-18] MEDS: METOPROLOL TARTRATE 25 MG TABLET PO ×2 (09:57→20:27)
[2019-10-18] MEDS: FUROSEMIDE 20 MG TABLET PO ×2 (09:59→16:42)
--- NOTE | 2019-10-18 10:34 | PC.NURSE ---
pt refused miralax and colace this morning stating she doesn't need it today. updated.
--- NOTE | 2019-10-18 13:08 | WPDNEURORHBP ---
Subjective Date/time seen: 10/18/19 13:08 Interval history: patient is doing fairly well her weakness debility and the knee discomfort is improving does not have any specific new complaints particularly denies any headache chest pain shortness of breath fever chills sore throat diarrhea vomiting Review of Systems Constitutional: Constitutional: Reports no additional constitutional complaints Eyes: Eyes: Reports no additional eye complaints ENT: Reports system reviewed and no additional complaints, except as documented Cardiovascular: Cardiovascular: Reports no additional cardiovascular complaints Respiratory: Respiratory: Reports no additional respiratory complaints Gastrointestinal: Gastrointestinal: Reports no additional gastrointestinal complaints Genitourinary: Genitourinary: Reports no additional female genitourinary complaints Musculoskeletal: Musculoskeletal: Reports no additional musculoskeletal complaints Integumentary/Breasts: Skin/Breast: Reports system reviewed and no additional complaints, except as docu Neurologic: Reports system reviewed and no additional complaints, except as documented Psychiatric: Psychiatric: Reports no additional psychiatric complaints Functional Status Ambulation Ability Ability to Ambulate 10 Feet: Minimum Assistance X 1 Ambulation Assistive Devices: Walker, Wheeled Transfers Ability Ability to Transfer In/Out of Chair: Contact Guard Exam Const: General: comfortable and no acute distress HENMT: General nose exam: Normal nares present Mouth: Yes moist mucous membranes Eyes: General: appearance normal, both eyes and all related structures Neck: Neck: supple and no JVD Resp: Effort & Inspection: normal respiratory effort Auscultation: clear to auscultation bilaterally Cardio: Rate: regular rate Rhythm: regular rhythm GI: GI Palp: Yes Soft to palpation Auscultation: normal bowel sounds Skin: General skin exam: normal color and no rashes or lesions noted Neuro: Other: patient remains alert and well oriented time place person her right-sided hemiparesis has improved the right knee joint has also improved the pain control is better and she is engage in therapy quite Extrem: Other: bilateral osteoarthritis of knees right more than the left Psych: Mental Status: mental status grossly normal Objective Data Vital Signs Vital Signs: Vital Signs - 24 hr 10/17/19 14:00 10/17/19 20:05 10/17/19 22:00 Temperature 36.2 C L 36.3 C L Pulse Rate 91 89 110 H Respiratory Rate 18 19 Blood Pressure 114/68 151/93 H Pulse Oximetry 90 89 L 10/18/19 06:00 10/18/19 09:47 10/18/19 09:57 Temperature 36.2 C L Pulse Rate 79 104 H Respiratory Rate 18 Blood Pressure 126/66 Pulse Oximetry 91 91 Intake/Output Intake/Output: Intake & Output 10/15/19 10/16/19 10/17/19 10/18/19 23:59 23:59 23:59 23:59 Intake Total 1200 1520 1440 380 Output Total 975 550 950 450 Balance 225 970 490 -70 Meds/Results Medications: Active Medications Generic Name Dose Route Start Last Admin Trade Name Freq PRN Reason Stop Dose Admin Acetaminophen 650 mg 10/08/19 19:42 10/17/19 20:05 Tylenol Tablet PO 650 mg Q6H PRN Administration Fever Or Pain Albuterol 5 mg 10/08/19 19:42 Albuterol Sulf Neb 2.5mg/0.5ml INHALATION Q6HRT PRN Dyspnea Albuterol 2 puff 10/08/19 19:42 Proventil Hfa INHALATION QID PRN Dyspnea Amlodipine Besylate 2.5 mg 10/09/19 09:00 10/18/19 09:55 Norvasc PO 2.5 mg DAILY PRABHA Administration Aspirin 325 mg 10/09/19 09:00 10/18/19 09:55 Aspirin PO 325 mg DAILY PRABHA Administration Budesonide/Formoterol Fumarate 2 puff 10/08/19 20:00 10/18/19 09:45 Symbicort 160-4.5 Mcg (*Sp) Inhaler INHALATION 2 puff Q12HRT PRABHA Administration Buspirone HCl 10 mg 10/08/19 21:00 10/17/19 20:06 Buspar PO 10 mg HS PRABHA Administration Clonazepam 0.5 mg 10/09/19 09:00 10/18/19 09:5
[2019-10-18] MEDS: LATANOPROST 0.005% OP SOLN 2.5 ML BTL 1 DROP EACH EYE (18:16)
[2019-10-18] MEDS: MELATONIN 5 MG TABLET 10 MG PO (20:26)
[2019-10-18] MEDS: DOCUSATE SODIUM 100 MG CAPSULE PO (20:27)
[2019-10-18] MEDS: busPIRone HCL 10 MG TABLET PO (20:27)
[2019-10-19 06:00] VITALS: BP 128/74; PULSE 88; RESP 19; TEMP 36.3; O2SAT 97
[2019-10-19 07:02] VITALS: BP 140/71; PULSE 85; RESP 19; TEMP 36.4; O2SAT 91
[2019-10-19] MEDS: ASPIRIN 325 MG TABLET PO (09:51)
[2019-10-19] MEDS: AMLODIPINE BESYLATE 2.5 MG TABLET PO (09:51)
[2019-10-19] MEDS: DOCUSATE SODIUM 100 MG CAPSULE PO (09:52)
[2019-10-19] MEDS: FAMOTIDINE 20 MG TABLET PO (09:52)
[2019-10-19] MEDS: FUROSEMIDE 20 MG TABLET PO (09:52)
[2019-10-19] MEDS: CLONAZEPAM 0.5 MG TAB PO (09:52)
[2019-10-19] MEDS: CHOLECALCIFEROL 1,000 UNIT TABLET 1000 UNITS PO (09:52)
[2019-10-19] MEDS: METOPROLOL TARTRATE 25 MG TABLET PO (09:53)
[2019-10-19] MEDS: polyethylene glycoL 3350 17 GM POWD.PACK PO (09:53)
[2019-10-19] MEDS: LORATADINE 10 MG TABLET PO (09:53)
[2019-10-19] MEDS: PANTOPRAZOLE 40 MG TABLET PO (09:53)
[2019-10-19] MEDS: TOLTERODINE TARTRATE 2 MG TABLET PO (09:54)
[2019-10-19] MEDS: POTASSIUM CHLORIDE 20 MEQ TABLET.ER 40 MEQ PO (09:54)
[2019-10-19] MEDS: ROSUVASTATIN 10 MG TABLET 20 MG PO (09:54)
[2019-10-19] MEDS: VENLAFAXINE HCL XR 75 MG CAP.ER.24H 150 MG PO (09:59)
[2019-10-19] MEDS: LIDOCAINE 5% PATCH 2 PATCH TRANSDERM (09:59)
--- NOTE | 2019-10-26 15:05 | PM.DS ---
DS: Diagnosis Admitting Diagnosis Admitting Diagnosis: Weakness Discharge Diagnosis (1) UTI (urinary tract infection): Code(s): N39.0 - Urinary tract infection, site not specified Status: Acute (2) Degenerative joint disease of knee: Qualifiers: Osteoarthritis type: primary Laterality: right Qualified Code(s): M17.11 - Unilateral primary osteoarthritis, right knee Code(s): M17.10 - Unilateral primary osteoarthritis, unspecified knee Status: Acute (3) Weakness: Code(s): R53.1 - Weakness Status: Acute (4) Frequent falls: Code(s): R29.6 - Repeated falls Status: Acute DS: Summary Hospital Course Reason for hospitalization: this 74-year-old woman was admitted to over rehab floor because of generalized weakness and debility due to multiple medical reasons the initial functional independent measures at the time of admission goals are written in my H and P Hospital Course: the hospital course of was of gradual improvement in the final functional independent measures were as follows eating independent, oral hygiene independent, toileting supervision, bathing supervision, upper body dressing set up for body dressing set up, footwear set up rolling in bed set up sitting to lying partial assistance lying to sitting partial assistance sit to stand supervision chair transfers partial assistance 12 transverse partial says stents cord transverse partial assistance walking 10 feet partial assistance walking 50 feet with 2 stairs patient was unable to do it walking 150 feet patient unable to do it walking 10 feet uneven surfaces patient unable to do it car were set up for stiff total staff not applicable hiccup object patient is unable to do it wheelchair 50 feet as set up wheelchair and 50 feet patient was unable to do it the patient was discharged with home health to follow no falls were recorded Time Spent with Patient Time attestation: Total time spent providing and/or coordinating discharge services: Exam Const: General: comfortable and no acute distress HENMT: General nose exam: Normal nares present Mouth: Yes dry mucous membranes Eyes: General: appearance normal, both eyes and all related structures Neck: Neck: supple and no JVD Resp: Effort & Inspection: normal respiratory effort Auscultation: clear to auscultation bilaterally Cardio: Rate: regular rate Rhythm: regular rhythm Skin: General skin exam: normal color and no rashes or lesions noted Neuro: Other: patient is strength and endurance significantly improved Extrem: General: normal to inspection DS: Data Data Completed and Pending Completed studies during hospitalization: patient's white count on October 16, 2019 was 4500 hemoglobin of 11.8 hematocrit 38.2 and platelet count of [id number] the urinalysis showed evidence of UTI patient was treated with Levaquin and did fairly well Discharge Plan Discharge Attending physician on discharge: Juan Wong Discharging Clinician: Juan Wong Anticipated Discharge Date/Time: 10/19/19 13:11 Patient Disposition: Home Health Service Activity: may shower and no driving Diet: as tolerated Discharge Instructions: Per Care Coordination: Home Health services have been arranged through [facility]. [facility] can be contacted at [phone]. Patient Instructions: Antibiotic Form Stand Alone Forms: General Discharge Information Follow-up/Referrals: PCP [Other] (Follow-up with primary care physician for general health maintenence and well being.) Bennie Prieto MD [Physician] - (As needed. ) Discharge Medications: New dextromethorphan-guaifenesin 10-100 mg/5 mL Syrup 10 ml PO Q4H PRN (Reason: Cough) Qty: 1 RF: 0 lidocaine [Lidoderm] 5 % Adhesive Patch,Medicated 2 patch transdermal DAILY Qty: 30 RF: 0 levofloxacin 500 mg Tablet 500 mg PO DAILY Qty: 3 RF: 0 Continued acetaminophen 325 mg Tablet 650 mg
== END 2019-10-19 13:55 | disposition home health service (06) | DRG 690 ==
PROVIDERS: Admitting Provider Psychiatry & Neurology Neurology; Visit Provider Psychiatry & Neurology Neurology
DX: N39.0 Urinary tract infection, site not specified (principal); I69.351 Hemiplegia and hemiparesis following cerebral infarction affecting right dominant side; J98.11 Atelectasis; R53.1 Weakness; B96.89 Other specified bacterial agents as the cause of diseases classified elsewhere; R33.9 Retention of urine, unspecified; E78.5 Hyperlipidemia, unspecified; G62.9 Polyneuropathy, unspecified; G47.33 Obstructive sleep apnea (adult) (pediatric); I10 Essential (primary) hypertension; J44.9 Chronic obstructive pulmonary disease, unspecified; K21.9 Gastro-esophageal reflux disease without esophagitis; M17.0 Bilateral primary osteoarthritis of knee; R91.8 Other nonspecific abnormal finding of lung field; R29.6 Repeated falls; R73.9 Hyperglycemia, unspecified; R26.9 Unspecified abnormalities of gait and mobility; Z87.891 Personal history of nicotine dependence; Z99.81 Dependence on supplemental oxygen; Z85.118 Personal history of other malignant neoplasm of bronchus and lung; Z85.43 Personal history of malignant neoplasm of ovary; Z85.3 Personal history of malignant neoplasm of breast; Z79.82 Long term (current) use of aspirin
CPT/HCPCS: 36415; 80048; 81001; 85025; 87086; 87088; 94640; 97110; 97116; 97150; 97166; 97530; 97535; 97542; A9270

== ENCOUNTER 2019-10-28 16:27 | Observation (INO) | payer MEDICARE, MEDICAID, SELFPAY ==
--- NOTE | ~2019-10-28 | US_ITS ---
EXAMINATION: US renal BI EXAM DATE: 10/30/2019 13:25 INDICATION: Abnormal urinalysis, fungus. TECHNIQUE: Multiple grayscale and Doppler images of the kidneys were obtained (by a technologist who performed the scan) and subsequently reviewed. There is no prior study for comparison. FINDINGS: Right kidney: There is normal contour and echogenicity. It measures 9.7 x 4.2 x 4.6 centimeters. Th ere are no focal renal lesions identified. There is no hydronephrosis. Left kidney: There is normal contour and echogenicity. It measures 9.8 x 6.1 x 6.4 centimeters. The re are no focal renal lesions identified. There is no hydronephrosis. Fuller catheter within collapsed bladder. IMPRESSION: 1. Sonographically unremarkable kidneys. Reviewed, dictated and finalized at location A. DER TENDER
--- NOTE | ~2019-10-28 | XR_ITS ---
XR chest 2V DATE: 10/28/2019 18:15 INDICATION: Shortness of breath, bilateral leg swelling. TECHNIQUE: AP and lateral views COMPARISON: 10/04/2021 view chest 10/05/2019 CT chest FINDINGS: Normal heart size. Aortic calcification. Bilateral hyperinflation, consistent with COPD. There is persistent infiltrate, scarring and/or atelectasis at the anterior segment of the right uppe r lobe and in the right lower lobe. Malignant lung mass and/or obstructing endobronchial lesion is no t excluded, particularly given the abnormal soft tissue density extending into the anterior right radha st wall. There is thoracolumbar reverse S-shaped scoliosis and degenerative change of the spine. There is diffuse osteopenia. IMPRESSION: Little interval change since 10/04/2019 Reviewed, dictated and finalized at location B. MBLER FILTERS
--- NOTE | ~2019-10-28 | CT_ITS ---
EXAMINATION: CT brain wo con DATE: 10/28/2019 22:05 INDICATION: Weakness. TECHNIQUE: Computed tomography (CT) of the head was performed without intravenous contrast. The dose- length product was 605.33 mGy-cm. The mA was adjusted according to patient size. Iterative reconstruc tion technique was employed. COMPARISON: CT dated 10/04/2019 FINDINGS: There are chronic infarcts of the right parietal and occipital lobes. Generalized atrophy. There are scattered moderate periventricular and subcortical white matter changes, most likely relate d to small vessel ischemic disease (microangiopathy). There are embolization coils in the suprasellar cistern. No acute intracranial hemorrhage, infarction, mass or mass effect. Paranasal sinuses and ma stoids are pneumatized. There is intracranial atherosclerosis. IMPRESSION: 1. No acute intracranial abnormality. 2: Chronic right parietal and occipital lobe infarctions. 3: Chronic age-related findings. Reviewed, dictated and finalized at location A. ER CONSULTANT
[2019-10-28 16:40] VITALS: BP 131/75; PULSE 112; RESP 20; TEMP 36.5; O2SAT 93
[2019-10-28 17:00] LABS: Basophils Absolute Auto 0.1 K/mm3 (0.0-0.1); Basophils Percent Auto 0.8 % (0.2-1.2); Eosinophils Absolute Auto 0.2 K/mm3 (0-0.3); Eosinophils Percent Auto 2.3 % (0-4.4); Hematocrit 43.8 % (37.0-47.0); Hemoglobin 13.5 g/dL (12.0-15.0); Immature Granulocyte Absolute 0.03 K/mm3 (0.00-0.031); Immature Granulocyte Percent A 0.4 % (0-0.5); Lymphocytes Absolute Auto 1.53 K/mm3 (0.9-3.2); Lymphocytes Percent Auto 18.3 % (18.3-44.2); Mean Corpuscular HGB Conc 30.8 g/dl (32-36); Mean Corpuscular Hemoglobin 27.8 pg (26-34); Mean Corpuscular Volume 90.3 fl (80-100); Mean Platelet Volume 9.1 fl (7.4-10.4); Monocytes Absolute Auto 0.8 K/mm3 (0.1-0.6); Monocytes Percent Auto 9.3 % (2.6-8.5); Neutrophils Absolute Auto 5.8 K/mm3 (1.3-6.7); Neutrophils Percent Auto 68.9 % (45.5-73.1); Platelet Count Result 234 k/mm3 (150-375); Red Blood Count 4.85 M/mm3 (4.2-5.4); Red Cell Distribution Width 14.1 % (11.5-14.5); White Blood Count 8.4 K/mm3 (4.5-10.0)
[2019-10-28 17:11] LABS: Alanine Aminotransferase 14 U/L (4-35); Albumin Level 4.3 g/dL (3.5-5.1); Alkaline Phosphatase 98 U/L (38-126); Aspartate Amino Transferase 21 U/L (14-36); Bilirubin,Total 0.4 mg/dL (0.2-1.3); Blood Urea Nitrogen 13 mg/dL (7-17); Calcium 8.9 mg/dL (8.4-10.2); Carbon Dioxide 31 mmol/L (22-30); Chloride 96 mmol/L (98-107); Estimated CRCL calculation 82 ml/min; Estimated Glomerular Filt Rate > 60; Glucose 107 mg/dL (65-105); Potassium 3.9 mmol/L (3.4-5.0); Sodium 140 mmol/L (137-145)
--- NOTE | 2019-10-28 20:43 | ED.WEAKNESS ---
HPI - Weakness General Chief complaint: Weakness Stated complaint: WEAK Time Seen by Provider: 10/28/19 20:39 Source: patient, family (Daughter at bedside), RN notes reviewed and old records reviewed Mode of arrival: ambulatory Limitations: no limitations History of Present Illness HPI Narrative: Pt is a 74 y/o female presenting to the ED c/o BLE weakness. Pt's daughter at bedside reports the pt has been experiencing worsened BLE weakness since yesterday. Per daughter, the pt was at rehabilitation at this facility due to chronic BLE weakness in which she was discharged from on 10/15. Pt's daughter states the pt was ambulating decently about 3 days ago, noting she was able to walk herself from her bed to her chair, but is now unable to get up from the chair or stand up on her own. Per daughter, the pt has just started seeing home health therapy and notes she was seen by them earlier today. Pt's daughter reports the pt lives alone at assisted living at [facility] in [place], [place] where she occasionally falls due to her weakness. Pt reports chronic BLE swelling that has alleviated, chronic bilateral knee pain, and residual right sided weakness from a CVA, Per daughter, the pt is receiving 2L of supplemental Oxygen at night but has been suggested by occupational therapy to receive oxygen continuously. Pt's daughter notes the pt sees a Elementary Summer School Teacher at [facility]. Pt's daughter states the pt has a Fuller Catheter and has been having an ongoing UTI. Pt's daughter notes the pt had Lidocaine patches to help her ambulate while she was in the hospital but is unable to afford them currently. Medical records reveal the pt was seen by orthopedic surgery on 10/11 of this year for her rt knee pain. Onset (ago): day(s) (1) Location: LLE and RLE Associated symptoms: fever/chills (Subjective fever, no chills) and other (Chronic bilateral knee pain; Chronic BLE swelling; residual lt sided weakness; cough) Related Data Home Medications Medication Instructions Recorded Confirmed acetaminophen 650 mg PO Q6H PRN 10/04/19 10/08/19 aspirin 325 mg PO DAILY 10/04/19 10/08/19 docusate sodium [Colace] 100 mg PO BID 10/04/19 10/08/19 Allergies Allergy/AdvReac Type Severity Reaction Status Date / Time Iodinated Contrast Media Allergy Severe Hives Verified 10/28/19 21:35 clonidine Allergy Intermediate Dizziness Verified 10/28/19 21:35 sertraline Allergy Intermediate Unknown Verified 10/28/19 21:35 topiramate Allergy Intermediate Confusion Verified 10/28/19 21:35 lorazepam AdvReac Intermediate Confusion Verified 10/28/19 21:35 Review of Systems Review of Systems: All systems reviewed & are unremarkable except as noted in HPI and below Constitutional: Constitutional: Reports fever(s) (Subjective) Respiratory: Respiratory: Reports cough and Reports dyspnea (chronic) Musculoskeletal: Musculoskeletal: Reports muscle weakness (BLE) and Reports other (Chronic bilateral knee pain) Integumentary/Breasts: Skin/Breast: Reports swelling (Chronic BLE) Neurologic: Reports weakness (Residual lt sided) [facility] Past Medical History Medical History Adenocarcinoma Ovary, breast Anxiety Arthritis Asthma Brain aneurysm COPD (chronic obstructive pulmonary disease) CVA (cerebral vascular accident) Residual right-sided weakness Degenerative joint disease of knee Elbow fracture Fibromyalgia GERD (gastroesophageal reflux disease) HLD (hyperlipidemia) HTN (hypertension) Lung cancer On home oxygen therapy Uses oxygen concentrator when SOB or during sleep. Peripheral neuropathy Pneumonia Sleep apnea Toes fractured Ventral hernia Vertigo Surgical History Surgical History H/O brain surgery Endovascular coiling for aneurysm H/O ventral hernia repair H/O: hysterectomy Family History Family History Father FH: heart attac
[2019-10-28 21:30] VITALS: BP 90/60; PULSE 101; RESP 13; O2SAT 100
[2019-10-28 21:38] LABS: Alveolar/Arterial O2 Gradient 77.9 mmHg; Base Excess ABG 5.7 mEq/l (+/-2.0); Carboxyhemoglobin 0.7 % THb (0-2.0); Fractional Inspired Oxygen 30 %; HCO3 ABG 30.8 mEq/l (22.0-26.0); Methemoglobin ABG 0.2 %THb (0-1.5); Oxygen Saturation ABG 96.2 % (95.0-100.0); Oxyhemoglobin 94.8 % THb (90.0-100.0); PCO2 ABG 46.7 mmHg (35.0-45.0); PO2 ABG 81.1 mmHg (80.0-100.0); Reduced Hemoglobin 4.3 %THb (0-5.0); Total Hemoglobin 13.5 g/dL (12.0-18.0); pH ABG 7.437 (7.350-7.450)
[2019-10-28 21:39] LABS: Device NASAL CANNULA; Liters per Minute 2.5 LPM; Modified Allen's Test Pass; Site Drawn LEFT RADIAL
[2019-10-28 21:44] LABS: Add Urine Microscopic? YES; Appearance Urine Clear (Clear); Bacteria Urine Trace /hpf; Bilirubin Urine Negative (Negative); Blood Urine Negative (Negative); Budding Yeast Urine Present /hpf; Color Urine Yellow (Yellow); Glucose Urine UA Negative (Negative); Ketones Urine Negative (Negative); Leukocyte Esterase Ur 2+ LEU/UL (Negative); Mucus Urine Moderate /lpf; Nitrate Urine Negative (Negative); Protein Urine Negative (Negative); Specific Grav Ur 1.017 (1.001-1.035); Squamous Epithelial Cell Urine Few /hpf (Few); WBC Urine 21-30 /hpf
[2019-10-28 22:00] VITALS: PULSE 97
[2019-10-28] MEDS: ACETAMINOPHEN 500 MG TABLET 1000 MG PO (22:48)
[2019-10-28 23:33] VITALS: BP 105/68; PULSE 98; RESP 20; TEMP 36.6; O2SAT 100
[2019-10-28 23:40] VITALS: BP 130/66; PULSE 94; RESP 20; TEMP 36.5; O2SAT 97; BMI 39.2
[2019-10-29] VITALS (13 sets, daily range): BP systolic 117–153; BP diastolic 47–79; PULSE 60–106; RESP 16–20; TEMP 36.1–36.5; O2SAT 93–98
--- NOTE | 2019-10-29 00:08 | ADMGEN ---
This patient, Kimberlee Bullock, was admitted to [facility] Surg Room 309-01. Patient/family oriented to hospital policies and general routines including ID bracelet, bed and alarms, visiting hours, pain management, procedures, bathroom and other care routines, personal items, smoking policy, room service/diet, and visiting hours. Valuables list has been completed. Information on how to activate the Rapid Response Team has been discussed. Patient/Family are encouraged to report perceived risks to care and to ask questions if they do not understand what they are told or what they should do.
--- NOTE | 2019-10-29 00:32 | PM.IMHP ---
H&P: HPI History of Present Illness Chief complaint: ambulation dysfunction weakness Narrative: This is a 74-year-old female with a past medical history of chronic right-sided weakness, lung cancer status post radiation therapy, COPD with nighttime oxygen use, and chronic gait instability who was recently discharged from rehab and now at assisted living. The patient presented to the hospital with a complaint of ambulatory dysfunction and increased generalized weakness. The patient was dong well with lidoderm patches for her lower extremity pain but had to stop taking them a few days ago as her insurance company refused to pay for them. She was last known to be able to ambulate about 3 days ago with her rollator. Since then she has had worsening lower extremity pain and debility. She denies any worsening LE swelling. The patient has chronic respiratory failure on 2 L of oxygen at home at all times. The patient also has a chronic jakcson with a history of multiple UTIs in the past. Her last urine culture earlier this month grew out bacteria and yeast. Tonight she denies any fevers, chills, cough, chest pain, worsening shortness of breath, abdominal pain, hematuria, nausea, vomiting, diarrhea or rectal bleeding. We have been asked to admit the patient to the hospital for her ambulatory dysfunction and generalized weakness. Review of Systems Review of Systems: All systems reviewed & are unremarkable except as noted in HPI and below PMFSH Past Medical History Medical History Adenocarcinoma Ovary, breast Anxiety Arthritis Asthma Brain aneurysm COPD (chronic obstructive pulmonary disease) CVA (cerebral vascular accident) Residual right-sided weakness Degenerative joint disease of knee Elbow fracture Fibromyalgia GERD (gastroesophageal reflux disease) HLD (hyperlipidemia) HTN (hypertension) Lung cancer On home oxygen therapy Uses oxygen concentrator when SOB or during sleep. Peripheral neuropathy Pneumonia Sleep apnea Toes fractured Ventral hernia Vertigo Surgical History Surgical History H/O brain surgery Endovascular coiling for aneurysm H/O ventral hernia repair H/O: hysterectomy Family History Family History Father FH: heart attack Mother FH: heart attack Sibling Kidney failure Hypertension Breast cancer Sibling No problems noted. Social History Social History Smoking status: Former smoker Second hand tobacco smoke exposure: No Alcohol intake: former Substance use: never Substance use type: does not use Gender identity (if verbalized by the patient): Female Spiritual care concerns: No Agree to blood products: Yes Meds Home Medications and Allergies Home Medications Medication Instructions Recorded Confirmed Type acetaminophen 650 mg PO Q6H PRN 10/04/19 10/29/19 History aspirin 325 mg PO DAILY 10/04/19 10/29/19 History docusate sodium [Colace] 100 mg PO BID 10/04/19 10/29/19 History albuterol sulfate 2 puff INHALATION QID PRN #1 vial 10/19/19 10/29/19 Rx albuterol sulfate 5 mg INHALATION Q6H PRN #30 vial 10/19/19 10/29/19 Rx amlodipine 2.5 mg PO DAILY #3 tablet 10/19/19 10/29/19 Rx budesonide-formoterol 2 puff INHALATION Q12H #1 vial 10/19/19 10/29/19 Rx buspirone 10 mg PO HS #30 tablet 10/19/19 10/29/19 Rx cholecalciferol (vitamin D3) 1,000 unit PO DAILY #100 tablet 10/19/19 10/29/19 Rx [Vitamin D3] clonazepam 0.5 mg PO DAILY #30 tablet 10/19/19 10/29/19 Rx dextromethorphan-guaifenesin 10 ml PO Q4H PRN #1 vial 10/19/19 10/29/19 Rx esomeprazole magnesium 40 mg PO DAILY #30 cap 10/19/19 10/29/19 Rx furosemide [Lasix] 20 mg PO BID #60 tablet 10/19/19 10/29/19 Rx latanoprost 1 drp OPHTHALMIC (EYE) QPM #1 amp 10/19/19 10/29/19 Rx levofloxacin 500 mg PO DAILY #3 tab
[2019-10-29 06:54] LABS: Blood Urea Nitrogen 17 mg/dL (7-17); Calcium 8.5 mg/dL (8.4-10.2); Carbon Dioxide 32 mmol/L (22-30); Chloride 98 mmol/L (98-107); Estimated CRCL calculation 81 ml/min; Estimated Glomerular Filt Rate > 60; Glucose 115 mg/dL (65-105); Potassium 3.6 mmol/L (3.4-5.0); Sodium 140 mmol/L (137-145)
[2019-10-29] MEDS: ENOXAPARIN 40 MG/0.4 ML SYRINGE SUB-Q (08:36)
[2019-10-29] MEDS: polyethylene glycoL 3350 17 GM POWD.PACK PO (08:36)
[2019-10-29] MEDS: TOLNAFTATE 1% POWDER 45 GM BTL 1 APPLIC TOPICAL ×2 (08:36→20:58)
[2019-10-29] MEDS: AMLODIPINE BESYLATE 2.5 MG TABLET PO (08:37)
[2019-10-29] MEDS: ROSUVASTATIN 10 MG TABLET 20 MG PO (08:37)
[2019-10-29] MEDS: LORATADINE 10 MG TABLET PO (08:37)
[2019-10-29] MEDS: TOLTERODINE TARTRATE 2 MG TABLET PO (08:37)
[2019-10-29] MEDS: VENLAFAXINE HCL XR 75 MG CAP.ER.24H 150 MG PO (08:37)
[2019-10-29] MEDS: FUROSEMIDE 20 MG TABLET PO ×2 (08:37→17:14)
[2019-10-29] MEDS: DOCUSATE SODIUM 100 MG CAPSULE PO ×2 (08:37→17:14)
[2019-10-29] MEDS: CHOLECALCIFEROL 1,000 UNIT TABLET 1000 UNITS PO (08:37)
[2019-10-29] MEDS: ASPIRIN 325 MG TABLET PO (08:37)
[2019-10-29] MEDS: LIDOCAINE 5% PATCH 2 PATCH TRANSDERM (08:42)
[2019-10-29 08:58] LABS: Basophils Absolute Auto 0.1 K/mm3 (0.0-0.1); Basophils Percent Auto 0.8 % (0.2-1.2); Eosinophils Absolute Auto 0.2 K/mm3 (0-0.3); Eosinophils Percent Auto 2.6 % (0-4.4); Hematocrit 37.9 % (37.0-47.0); Hemoglobin 11.9 g/dL (12.0-15.0); Immature Granulocyte Absolute 0.01 K/mm3 (0.00-0.031); Immature Granulocyte Percent A 0.2 % (0-0.5); Lymphocytes Absolute Auto 1.37 K/mm3 (0.9-3.2); Lymphocytes Percent Auto 22.1 % (18.3-44.2); Mean Corpuscular HGB Conc 31.4 g/dl (32-36); Mean Corpuscular Volume 89.2 fl (80-100); Mean Platelet Volume 8.7 fl (7.4-10.4); Monocytes Absolute Auto 0.6 K/mm3 (0.1-0.6); Monocytes Percent Auto 10.2 % (2.6-8.5); Neutrophils Percent Auto 64.1 % (45.5-73.1); Platelet Count Result 202 k/mm3 (150-375); Red Blood Count 4.25 M/mm3 (4.2-5.4); Red Cell Distribution Width 13.9 % (11.5-14.5); White Blood Count 6.2 K/mm3 (4.5-10.0)
[2019-10-29] MEDS: ALBUTEROL SULFATE NEB 2.5 MG/0.5 ML INH INHALATION ×3 (09:52→21:37)
--- NOTE | 2019-10-29 11:26 | ECG_ITS ---
Measurements Intervals [place] Rate: 104 P: 30 HI: 202 QRS: 39 QRSD: 77 T: 14 QT: 267 QTc: 353 Interpretive Statements SINUS TACHYCARDIA BORDERLINE AV CONDUCTION DELAY NONSPECIFIC T-WAVE ABNORMALITY- INFERIOR LEADS ABNORMAL ECG Electronically Signed On 10-29-2019 12:16:59 DIRECTOR CLOUD TRANSFORMATION by Brandt Johnson D.O.
--- NOTE | 2019-10-29 11:27 | PCOTNOTE ---
OT evaluation attempted. Hold at this time per RN as patient is needing EKG and other testing. Will attempt OT evaluation at later time when deemed appropriate by RN and Physician.
--- NOTE | 2019-10-29 13:20 | PM.IMPN ---
Progress Note: A&P Assessment and Plan (1) Weakness: Code(s): R53.1 - Weakness Status: Acute Assessment and Plan: May be secondary to ongoing pain/weakness from not having her lidocaine patches. CT brain showing no acute findings. We will continue Lidocaine patches for now. PT/OT. Encourage patient to be out of bed. 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 She has chronic right sided weakness possibly from the coiling. She may also have weakness from another source such as DDD. Will start PT/OT. (3) HTN (hypertension): Qualifiers: Hypertension type: unspecified Qualified Code(s): I10 - Essential (primary) hypertension Code(s): I10 - Essential (primary) hypertension Status: Chronic Assessment and Plan: BP reviewed on 10/29/19. BP well controlled. Continued home Norvasc. (4) COPD (chronic obstructive pulmonary disease): Qualifiers: COPD type: unspecified COPD Qualified Code(s): J44.9 - Chronic obstructive pulmonary disease, unspecified Code(s): J44.9 - Chronic obstructive pulmonary disease, unspecified Status: Chronic Assessment and Plan: Stable. No evidence of exacerbation. Patient with chronic respiratory failure on home O2 at 2L. Continue oxygen therapy to maintain O2 sats >94%. Continue scheduled bronchodilators and Symbicort. (5) Urine retention: Code(s): R33.9 - Retention of urine, unspecified Status: Acute Assessment and Plan: Patient with chronic Fuller catheter. UA noted. Suspect the yeast is a colonizer or contaminant. Continue the same. Subjective Date/time seen: 10/29/19 13:20 Interval history: 74yo female here for generalized weakness. Assuming care. Chart reviewed. Patient states he was having ?quivering? in her chest to the nurse. She relates to me that the quivering is more diffuse. She does have anxiety but this feels different. Symptoms seem to be resolving on their own. She denies any chest pain. She has not been out of bed yet. She normally walks with a walker at home. She denies any cough. She has been eating normally. Patient with chronic indwelling Fuller catheter for weak bladder?. She has chronic pedal edema actually looks better today than has in the past. Exam Narrative: Exam Narrative: Gen - NARD Chest - CTA bilaterally, nml RR. Right upper breast scarring. CV - RRR S1/S2 to have 6 systolic murmur last right upper sternal border Abd -soft. Obese. Nontender. -Fuller secured clear yellow urine. Ext -trace pedal edema Psych - Nml mood and affect Skin - Warm and dry Objective Data Vital Signs Vital Signs: Vital Signs - 24 hr 10/28/19 16:40 10/28/19 21:30 10/28/19 22:00 Temperature 97.7 F Pulse Rate 112 H 101 H 97 Respiratory Rate 20 13 Blood Pressure 131/75 90/60 L Pulse Oximetry 93 100 10/28/19 23:33 10/28/19 23:40 10/29/19 05:53 Temperature 97.8 F 97.7 F 97.5 F L Pulse Rate 98 94 86 Respiratory Rate 20 20 20 Blood Pressure 105/68 130/66 117/64 Pulse Oximetry 100 97 98 10/29/19 07:44 10/29/19 09:55 10/29/19 09:56 Temperature 97.7 F Pulse Rate 60 95 Respiratory Rate 16 20 Blood Pressure 153/47 H Pulse Oximetry 96 94 10/29/19 10:09 10/29/19 11:30 10/29/19 13:07 Temperature 97.0 F L Pulse Rate 89 106 H 96 Respiratory Rate 20 20 18 Blood Pressure 117/57 L Pulse Oximetry 96 10/29/19 13:18 Temperature Pulse Rate 95 Respiratory Rate 18 Blood Pressure Pulse Oximetry Intake/Output Intake/Output: Intake & Output 10/26/19 10/27/19 10/28/19 10/29/19 23:
--- NOTE | 2019-10-29 13:40 | PCOTNOTE ---
OT Evaluation attempted. Pt had just begun to eat lunch. Will attempt OT evaluation at a later time.
[2019-10-29] MEDS: LATANOPROST 0.005% OP SOLN 2.5 ML BTL 1 DROP EACH EYE (17:14)
[2019-10-29] MEDS: PANTOPRAZOLE 40 MG TABLET PO (17:14)
[2019-10-29] MEDS: ACETAMINOPHEN 325 MG TABLET 650 MG PO (18:33)
[2019-10-29] MEDS: busPIRone HCL 10 MG TABLET PO (20:58)
[2019-10-29] MEDS: MELATONIN 5 MG TABLET 10 MG PO (20:58)
[2019-10-30] VITALS (10 sets, daily range): BP systolic 117–139; BP diastolic 54–89; PULSE 92–110; RESP 16–20; TEMP 36.3–36.6; O2SAT 95–99
[2019-10-30] MEDS: ALBUTEROL SULFATE NEB 2.5 MG/0.5 ML INH INHALATION ×3 (01:34→14:17)
[2019-10-30] MEDS: polyethylene glycoL 3350 17 GM POWD.PACK PO (09:38)
[2019-10-30] MEDS: ROSUVASTATIN 10 MG TABLET 20 MG PO (09:38)
[2019-10-30] MEDS: AMLODIPINE BESYLATE 2.5 MG TABLET PO (09:40)
[2019-10-30] MEDS: ASPIRIN 325 MG TABLET PO (09:40)
[2019-10-30] MEDS: VENLAFAXINE HCL XR 75 MG CAP.ER.24H 150 MG PO (09:40)
[2019-10-30] MEDS: DOCUSATE SODIUM 100 MG CAPSULE PO ×2 (09:41→17:48)
[2019-10-30] MEDS: ENOXAPARIN 40 MG/0.4 ML SYRINGE SUB-Q (09:41)
[2019-10-30] MEDS: CHOLECALCIFEROL 1,000 UNIT TABLET 1000 UNITS PO (09:41)
[2019-10-30] MEDS: FUROSEMIDE 20 MG TABLET PO ×2 (09:41→17:48)
[2019-10-30] MEDS: PANTOPRAZOLE 40 MG TABLET PO (09:42)
[2019-10-30] MEDS: LIDOCAINE 5% PATCH 2 PATCH TRANSDERM (09:42)
[2019-10-30] MEDS: LORATADINE 10 MG TABLET PO (09:42)
[2019-10-30] MEDS: TOLNAFTATE 1% POWDER 45 GM BTL 1 APPLIC TOPICAL (09:44)
--- NOTE | 2019-10-30 16:43 | PM.DS ---
DS: Diagnosis Admitting Diagnosis Admitting Diagnosis: Weakness Discharge Diagnosis (1) Weakness: Code(s): R53.1 - Weakness Status: Acute Assessment and Plan: May be secondary to ongoing pain/weakness from not having her lidocaine patches. CT brain showing no acute findings. We continued her Lidocaine patches. PT/OT worked with her. Talked with care coordination who has been in touch with family. No beds available at [facility] until Monday. Family wants to take patient home and will help care for her until she can be transported to [facility] on Monday. 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 She has chronic right sided weakness possibly from the coiling. She may also have weakness from another source. Therapy ordered. (3) HTN (hypertension): Qualifiers: Hypertension type: unspecified Qualified Code(s): I10 - Essential (primary) hypertension Code(s): I10 - Essential (primary) hypertension Status: Chronic Assessment and Plan: BP monitored closely. BP remianed well controlled. We continued home Norvasc. (4) COPD (chronic obstructive pulmonary disease): Qualifiers: COPD type: unspecified COPD Qualified Code(s): J44.9 - Chronic obstructive pulmonary disease, unspecified Code(s): J44.9 - Chronic obstructive pulmonary disease, unspecified Status: Chronic Assessment and Plan: Stable. No evidence of exacerbation. Patient with chronic respiratory failure on home O2 at 2L. We continued scheduled bronchodilators and Symbicort. (5) Urine retention: Code(s): R33.9 - Retention of urine, unspecified Status: Acute Assessment and Plan: Patient with chronic Fuller catheter. UA noted. Renal US showing no acute findings. Suspect the yeast is a colonizer or contaminant. DS: Summary Hospital Course Reason for hospitalization: 74yo female here for weakness. Please see H&P for details. Hospital Course: As above Time Spent with Patient Time attestation: Total time spent providing and/or coordinating discharge services:35 minutes Time spent: Greater than 30 minutes Specific discharge activities: Discussed with daycare teacher. Discussed with family. Exam Narrative: Exam Narrative: Gen - NARD Chest - clear, distatn BS. Nml RR CV - RRR S1/S2 Abd -soft. NT/ND, +BS -Fuller secured clear yellow urine. Ext -trace pedal edema (this is much improved from baseline per patient) Psych - Nml mood and affect Skin - Warm and dry Discharge Plan Discharge Attending physician on discharge: Paulino Gill Discharging Clinician: Paulino Gill Anticipated Discharge Date/Time: 10/30/19 16:52 Patient Disposition: [facility] Senior Care/Asst Living Activity: as tolerated Diet: heart healthy Discharge Instructions: Continue home oxygen at 2 L nasal cannula. Call [facility] to verify bed availability on 11/01/2019. If bed is available, patient can be transferred to the facility for further therapy. Patient Instructions: Antibiotic Form Stand Alone Forms: General Discharge Information Follow-up/Referrals: UNKNOWN,DOCTOR [Primary Care Provider] - Follow Up with Primary Dr Discharge Medications: New tolnaftate 1 % Powder 1 applic topical Q12HR Qty: 45 RF: 0 Continued acetaminophen 325 mg Tablet 650 mg PO Q6H PRN (Reason: Fever Or Pain) RF: 0 aspirin 325 mg Tablet 325 mg PO DAILY RF: 0 docusate sodium [Colace] 100 mg Capsule 100 mg PO BID RF: 0 dextromethorphan-guaifenesin 10-100 mg/5 mL Syrup 10 ml P
[2019-10-30] MEDS: TOLTERODINE TARTRATE 2 MG TABLET PO (17:47)
[2019-10-30] MEDS: LATANOPROST 0.005% OP SOLN 2.5 ML BTL 1 DROP EACH EYE (17:48)
--- NOTE | 2019-10-30 19:44 | PC.NURSE ---
Patient discharged at 1858 via wheel chair and POV. Patient discharged home and is going to be transported to [facility] on Monday11/01/[address] Gill and Case management both aware. Report called to ALMA Flores at [facility] @ 1352.
== END 2019-10-30 18:58 ==
LOC: ANHED 20:55 → ANH3MEDSUR 23:10
PROVIDERS: Admitting Provider Family Medicine; Emergency Provider General Practice; Visit Provider Internal Medicine
DX: R53.1 Weakness (principal); R26.2 Difficulty in walking, not elsewhere classified; I69.351 Hemiplegia and hemiparesis following cerebral infarction affecting right dominant side; I10 Essential (primary) hypertension; J44.9 Chronic obstructive pulmonary disease, unspecified; J96.10 Chronic respiratory failure, unspecified whether with hypoxia or hypercapnia; Z99.81 Dependence on supplemental oxygen; R33.9 Retention of urine, unspecified; R82.90 Unspecified abnormal findings in urine; Z96.0 Presence of urogenital implants; G47.30 Sleep apnea, unspecified; G62.9 Polyneuropathy, unspecified; M79.7 Fibromyalgia; K21.9 Gastro-esophageal reflux disease without esophagitis; Z79.82 Long term (current) use of aspirin; Z79.899 Other long term (current) drug therapy; Z85.118 Personal history of other malignant neoplasm of bronchus and lung; Z85.3 Personal history of malignant neoplasm of breast; Z85.43 Personal history of malignant neoplasm of ovary; Z87.440 Personal history of urinary (tract) infections; Z87.891 Personal history of nicotine dependence; Z91.81 History of falling; Z92.3 Personal history of irradiation
CPT/HCPCS: 36415; 36600; 70450; 71046; 76775; 80048; 80053; 81001; 82375; 82805; 83050; 85025; 87081; 87086; 93005; 94640; 96372; 97161; 97165; 97530; 97535; 99285; A9270; G0378; J1650